=== PATIENT | female | born 1935 | race Caucasian/White ===

== ENCOUNTER 2021-03-14 20:46 | Emergency (ER) | payer MEDICARE, BC, MEDICAID, SELFPAY ==
--- NOTE | ~2021-03-14 | XR_ITS ---
XR chest 1V portable DATE: 03/14/2021 21:21 INDICATION: Altered mental state TECHNIQUE: Portable AP chest on 03/14/2021 2122 hours COMPARISON: 11/04/2018 two-view chest FINDINGS: Cardiomegaly. Aortic calcification and mild unfolding. No pulmonary infiltrate or consolidation, pleural effusion or pulmonary vascular congestion or pneumo thorax. Diffuse osteopenia. Mild dextro scoliosis of the thoracic spine. Surgical clips overlie either side of the diaphragmatic hiatus. IMPRESSION: Cardiomegaly and aortic atherosclerosis No active pulmonary disease Reviewed, dictated and finalized at location A.
--- NOTE | ~2021-03-14 | CT_ITS ---
EXAMINATION: CT abdomen pelvis w con DATE: 03/14/2021 22:29 INDICATION: Nausea. Abdominal tenderness. TECHNIQUE: Computed tomography (CT) of the abdomen and pelvis was performed with 100 cc Omnipaque 350 intravenous contrast. Automated exposure control and iterative reconstruction technique were employe d. Exam dose: 809.54 mGy-cm total exam DLP. COMPARISON: 10/16/2017 CT abdomen pelvis FINDINGS: Mild cardiomegaly. No pericardial or pleural effusion. There are mild interstitial fibrotic changes and/or atelectasis in the lower lung zones. Small sliding hiatal hernia. Fundoplication device and surgical clips in the region of the proximal stomach. No hepatic, splenic, pancreatic, adrenal space-occupying mass lesion. The gallbladder is present. No bile duct or pancreatic duct dilatation. Normal morphology of the adrenal glands. 8 mm right renal probable cyst. There is thickening and mild enhancement of the urothelium, which may indicate urinary tract infectio n. No ureteral calculus or hydroureteronephrosis. There is calcification of the abdominal aorta but no aneurysm. No intraperitoneal or retroperitoneal or pelvic mass lesion or adenopathy or ascites is evident. Left and right colonic diverticula; no CT evidence diverticulitis. No bowel obstruction. The appendix is not localized. T9 vertebral hemangioma Posterior L4-5 lumbar surgical spinal fusion. Left hip arthroplasty. IMPRESSION: Mild bilateral urothelial thickening and enhancement, suggesting possible urinary tract infection Mild urinary bladder wall thickening, which may be due to underdistention or infection 8 mm probable right renal cyst Postoperative changes of the stomach Small sliding hiatal hernia Cardiomegaly Left and right colon diverticulosis; no CT evidence of diverticulitis Reviewed, dictated and finalized at [facility]. Reviewed, dictated and finalized at location A. IMPRESSION: Mild bilateral urothelial thickening and enhancement, suggesting p ossible urinary tract infection Mild urinary bladder wall thickening, which may be due to underdistention or in fection 8 mm probable right renal cyst Postoperative changes of the stomach Small sliding hiatal hernia Cardiomegaly Left and right colon diverticulosis; no CT evidence of diverticulitis
[2021-03-14 20:59] VITALS: BP 132/64; PULSE 77; RESP 16; TEMP 37.7; O2SAT 92
--- NOTE | 2021-03-14 21:01 | ED.AMS ---
HPI - Altered Mental Status General Chief Complaint: Altered Mental Status Stated Complaint: AMS Time Seen by Provider: 03/14/21 21:01 History of Present Illness HPI narrative: History limited by dementia. [facility] Per EMS she may have been sent in for altered mental status, although per there report she is at her baseline. The pateint complains of nausea and abdominal pain, but does not seem to be a relieble historian and she is not able to give any details. Related Data Allergies Allergy/AdvReac Type Severity Reaction Status Date / Time acetaminophen Allergy Unknown Unknown Verified 03/14/21 23:37 bacitracin Allergy Unknown Unknown Verified 03/14/21 23:37 clonazepam Allergy Unknown Unknown Verified 03/14/21 23:37 codeine Allergy Unknown Unknown Verified 03/14/21 23:37 hydrocodone Allergy Unknown Unknown Verified 03/14/21 23:37 morphine Allergy Unknown Unknown Verified 03/14/21 23:37 neomycin Allergy Unknown Unknown Verified 03/14/21 23:37 polymyxin B Allergy Unknown Unknown Verified 03/14/21 23:37 propoxyphene Allergy Unknown Unknown Verified 03/14/21 23:37 raloxifene Allergy Unknown Unknown Verified 03/14/21 23:37 Review of Systems Review of Systems: ROS unobtainable: Yes unobtainable due to mental status PMFSH Past Medical History Medical History (Updated 03/15/21 @ 17:59 by Kulwinder Melton MD) Anxiety Chronic pain Family History Family History (Updated 07/24/14 @ 07:13 by DOCTOR UNKNOWN) Other Family history of arthritis Social History Social History (Updated 03/15/21 @ 17:59 by Kulwinder Melton MD) Smoking status: Never smoker Living arrangements[facility] Exam Const: General: no acute distress and alert Nutritional Appearance: well nourished Other: oriented x2 HENMT: Head: normal to inspection Mouth: Yes moist mucous membranes Neck: Neck: normal visual inspection Resp: Effort & Inspection: normal respiratory effort Auscultation: clear to auscultation bilaterally Cardio: Rate: regular rate Rhythm: regular rhythm GI: Inspection: non-distended GI Palp: Yes Soft to palpation, No Guarding due to palpation present (GI) and No Rebound tenderness present Auscultation: normal bowel sounds Other: inconsistent tenderness. Moans in pain with palpation, does not respond when equal pressure is applied with stethoscope Skin: General skin exam: normal color Neuro: General: moves all extremities Speech: normal speech Other: oriented x2 Course Vital Signs Vital signs: Vital Signs Temperature 37.7 C H 03/14/21 20:59 Pulse Rate 77 03/14/21 20:59 Respiratory Rate 16 03/14/21 20:59 Blood Pressure 132/64 03/14/21 20:59 Pulse Oximetry 92 03/14/21 20:59 Temperature 37.7 C H 03/14/21 20:59 Pulse Rate 99 03/15/21 03:00 Respiratory Rate 17 03/15/21 03:00 Blood Pressure 152/73 H 03/15/21 03:00 Pulse Oximetry 93 03/15/21 03:00 MDM - Altered Mental Status MDM Narrative Medical decision making narrative: UA indicative of infection. CT equivocal for pyelonephritis. She has only mild leukocytosis, she is afebrile, No vomiting, no CVA tenderness. Clinically pyelonephritis is unlikely. Dose of ceftriaxone given. Lab Data Result diagrams: 03/14/21 21:38 03/14/21 21:38 Labs: Lab Results 03/14/21 03/14/21 03/14/21 Range/Units 21:38 21:38 22:00 WBC 11.7 H (4.5-10.0) K/mm3 RBC 3.85 L (4.2-5.4) M/mm3 Hgb 12.1 (12.0-15.0) g/dL Hct 36.7 L (37.0-47.0) % MCV 95.3 (80-100) fl MCH 31.4 (26-34) pg MCHC 33.0 (32-36) g/dl RDW 12.9 (11.5-14.5) % Plt Count 154 (150-375) k/mm3 MPV 9.0 (7.4-10.4) fl Immature Gran % (Auto) 0.7 H (0-0.5) % Neut % (Auto) 81.1 H (45.5-73.1) % Lymph % (Auto) 10.8 L (18.3-44.2) % [place] % (Auto) 7.1 (2.6-8.5) % Eos % (Auto) 0.1 (0-4.4) % Baso % (Auto) 0.2 (0.2-1.2) % Lymph # (Auto) 1.26 (0.9-3.2
[2021-03-14 21:43] LABS: Basophils Percent Auto 0.2 % (0.2-1.2); Eosinophils Percent Auto 0.1 % (0-4.4); Hematocrit 36.7 % (37.0-47.0); Hemoglobin 12.1 g/dL (12.0-15.0); Immature Granulocyte Absolute 0.08 K/mm3 (0.00-0.031); Immature Granulocyte Percent A 0.7 % (0-0.5); Lymphocytes Absolute Auto 1.26 K/mm3 (0.9-3.2); Lymphocytes Percent Auto 10.8 % (18.3-44.2); Mean Corpuscular Hemoglobin 31.4 pg (26-34); Mean Corpuscular Volume 95.3 fl (80-100); Monocytes Absolute Auto 0.8 K/mm3 (0.1-0.6); Monocytes Percent Auto 7.1 % (2.6-8.5); Neutrophils Absolute Auto 9.5 K/mm3 (1.3-6.7); Neutrophils Percent Auto 81.1 % (45.5-73.1); Platelet Count Result 154 k/mm3 (150-375); Red Blood Count 3.85 M/mm3 (4.2-5.4); Red Cell Distribution Width 12.9 % (11.5-14.5); White Blood Count 11.7 K/mm3 (4.5-10.0)
[2021-03-14 21:54] LABS: Alanine Aminotransferase 12 U/L (4-35); Albumin Level 3.7 g/dL (3.5-5.1); Alkaline Phosphatase 85 U/L (38-126); Anion Gap 4 mmol/L (8-16); Aspartate Amino Transferase 24 U/L (14-36); Bilirubin,Total 1.2 mg/dL (0.2-1.3); Blood Urea Nitrogen 20 mg/dL (7-17); Calcium 9.3 mg/dL (8.4-10.2); Carbon Dioxide 27 mmol/L (22-30); Chloride 104 mmol/L (98-107); Estimated CRCL calculation 35 ml/min; Estimated Glomerular Filt Rate 53; Glucose 138 mg/dL (65-105); Potassium 4.2 mmol/L (3.4-5.0); Sodium 135 mmol/L (137-145)
[2021-03-14 22:00] VITALS: BP 139/70; PULSE 74; RESP 16; O2SAT 94
[2021-03-14 22:19] LABS: Add Urine Microscopic? YES; Appearance Urine Cloudy (Clear); Bacteria Urine Trace /hpf; Bilirubin Urine Negative (Negative); Color Urine Yellow (Yellow); Glucose Urine UA Negative (Negative); Ketones Urine Negative (Negative); Leukocyte Esterase Ur 3+ LEU/UL (Negative); Mucus Urine Rare /lpf; Nitrate Urine Positive (Negative); Protein Urine 1+ mg/dL (Negative); Specific Grav Ur 1.013 (1.001-1.035); Squamous Epithelial Cell Urine Rare /hpf (Few); Urobilinogen Urine Negative mg/dL (<2.0); WBC Urine 21-30 /hpf
[2021-03-14 22:21] LABS: Blood Urine Negative (Negative)
[2021-03-15] VITALS: BP 142/69; PULSE 81; RESP 16; O2SAT 94
[2021-03-15 02:00] VITALS: BP 138/71; PULSE 87; RESP 18; O2SAT 95
[2021-03-15 03:00] VITALS: BP 152/73; PULSE 99; RESP 17; O2SAT 93
== END 2021-03-15 03:20 ==
PROVIDERS: Emergency Provider Emergency Medicine; PCP Family Medicine
DX: N30.00 Acute cystitis without hematuria (principal); I51.7 Cardiomegaly; I70.0 Atherosclerosis of aorta; N28.1 Cyst of kidney, acquired; K57.90 Diverticulosis of intestine, part unspecified, without perforation or abscess without bleeding; K44.9 Diaphragmatic hernia without obstruction or gangrene; R93.41 Abnormal radiologic findings on diagnostic imaging of renal pelvis, ureter, or bladder
CPT/HCPCS: 36415; 71045; 74177; 80053; 81001; 85025; 87077; 87086; 87088; 87147; 87186; 96365; 99284; J0696; Q9967

== ENCOUNTER 2022-02-28 19:54 | Inpatient (IN) | payer MEDICARE, BC, MEDICAID, SELFPAY ==
--- NOTE | ~2022-02-28 | XR_ITS ---
EXAMINATION: XR chest 1V portable Exam Date/Time: 02/28/2022 20:05 CDT CLINICAL HISTORY: COUGH, TRANSIENT ALTERATION OF AWARENESS Comparison: 03/14/2021 RESULT: Lines, tubes, and devices: Surgical clips and suture material in the left upper quadrant. Lungs and pleura: Senescent changes, otherwise clear. Cardiomediastinal silhouette: Stable cardiomediastinal silhouette. Other: No acute osseous or upper abdominal finding. IMPRESSION: No acute cardiopulmonary process. Reviewed, dictated and finalized at location K.
--- NOTE | ~2022-02-28 | CT_ITS ---
EXAMINATION: CT abdomen pelvis w con DATE: 02/28/2022 21:38 INDICATION: Diffuse abdominal pain, fevers. TECHNIQUE: Computed tomography (CT) of the abdomen and pelvis was performed without intravenous contr ast. Automated exposure control and iterative reconstruction technique were employed. The dose-length product was 670.57 mGy-cm. COMPARISON: 03/14/2021. FINDINGS: Lower thorax: Senescent changes and minimal bibasilar atelectasis. Liver: No mass. Biliary/Gallbladder: No bile duct dilation. Normal gallbladder. Spleen: No mass. No splenomegaly. Granulomatous calcifications. Pancreas: No mass or duct dilation. Pancreatic atrophy. Adrenals:No mass. Kidneys: Likely right mid pole simple cyst. No stone, or hydronephrosis. GI tract: Fundoplication device and surgical clips at the proximal stomach. Gastric wall edema as can be seen with gastritis. No bowel dilation or wall thickening. Scattered diverticuli without evidence of diverticulitis. Uncomplicated appearing distal sigmoid anastomosis. Appendix not visualized, poss ibly surgically absent. Mesentery/Peritoneum: No ascites or mass. Retroperitoneum: No mass. Moderate atherosclerotic calcification in the abdominal arteries. Pelvis: Moderate bladder wall edema and surrounding inflammatory change, with urothelial enhancement. Uterus and ovaries not visualized and possibly surgically absent. Bones/Soft Tissues: Uncomplicated appearing L4-5 posterior fusion hardware and left total hip arthrop lasty hardware.No acute osseous finding. Additional Findings: None. IMPRESSION: Gastritis. Cystitis. No other acute abdominopelvic process detected. Reviewed, dictated and finalized at location K.
[2022-02-28 19:55] VITALS: BP 139/67; PULSE 94; RESP 16; TEMP 37.9; O2SAT 95
--- NOTE | 2022-02-28 19:59 | ECG_ITS ---
Measurements Intervals [place] Rate: 92 P: [place]: 0 QRS: -30 QRSD: 97 T: 26 QT: 321 QTc: 399 Interpretive Statements ATRIAL FIBRILLATION LEFTWARD AXIS T-WAVE ABNORMALITY, CONSIDER ISCHEMIA Electronically Signed On 03-01-2022 8:47:20 CDT by William Arroyo M.D.
--- NOTE | 2022-02-28 20:18 | ED.AMS ---
HPI - Altered Mental Status General Chief Complaint: Altered Mental Status Stated Complaint: ALTERED LOC, COUGH Time Seen by Provider: 02/28/22 19:59 Source: patient, family and EMS History of Present Illness HPI narrative: Patient was sent over from the nursing facility for weakness and altered mental status. Between, family nursing facility and EMS patient has not been eating patient is not been taking her medications. She seems more weak and slightly more confused than usual so she was referred to the ER for further evaluation. Patient reports her knees hurt but has no other complaints. Nurse for the report there has been some influenza in their facility. Related Data Home Medications Medication Instructions Recorded Confirmed aspirin 81 mg PO DAILY 02/28/22 02/28/22 donepezil 10 mg DAILY 02/28/22 02/28/22 loperamide 2 mg PO Q6H PRN 02/28/22 02/28/22 lorazepam 0.5 mg PO BID 02/28/22 02/28/22 ondansetron 8 mg PO TID PRN 02/28/22 03/01/22 pravastatin 20 mg PO HS 02/28/22 03/01/22 sumatriptan succinate 25 mg PO DAILY PRN 02/28/22 03/01/22 tamsulosin 0.4 mg PO HS 02/28/22 03/01/22 tramadol 50 mg PO TID 02/28/22 03/01/22 famotidine 20 mg PO DAILY 03/01/22 03/01/22 potassium chloride 10 meq PO DAILY 03/01/22 03/01/22 sertraline 50 mg PO DAILY 03/01/22 03/01/22 Allergies Allergy/AdvReac Type Severity Reaction Status Date / Time acetaminophen Allergy Unknown Unknown Verified 02/28/22 20:05 bacitracin Allergy Unknown Unknown Verified 02/28/22 20:05 clonazepam Allergy Unknown Unknown Verified 02/28/22 20:05 codeine Allergy Unknown Unknown Verified 02/28/22 20:05 hydrocodone Allergy Unknown Unknown Verified 02/28/22 20:05 morphine Allergy Unknown Unknown Verified 02/28/22 20:05 neomycin Allergy Unknown Unknown Verified 02/28/22 20:05 polymyxin B Allergy Unknown Unknown Verified 02/28/22 20:05 propoxyphene Allergy Unknown Unknown Verified 02/28/22 20:05 raloxifene Allergy Unknown Unknown Verified 02/28/22 20:05 Review of Systems Review of Systems: ROS unobtainable: Yes unobtainable due to mental status PMFSH Past Medical History Medical History Anxiety Chronic pain Family History Family History Other Family history of arthritis Social History Social History Smoking status: Never smoker Exam Narrative: GENERAL: Well-appearing, well-nourished, and in no acute distress. HEAD: Normocephalic, atraumatic. EYES: PERRLA and EOMI. ENT: Nares clear, no rhinorrhea or epistaxis. Mucous membranes moist. NECK: Supple. No masses. No JVD CHEST: Diffuse rhonchi no respiratory distress HEART: Regular rhythm no murmur heard. Normal peripheral pulses. ABDOMEN: Mild diffuse abdominal pain EXTREMITIES: Normal range of motion. No edema. SKIN: Warm, dry, no rash. NEURO: No focal deficits. Somnolent but arousable PSYCH: Normal mood and affect. Course Vital Signs Vital signs: Vital Signs Temperature 37.9 C H 02/28/22 19:55 Pulse Rate 94 02/28/22 19:55 Respiratory Rate 16 02/28/22 19:55 Blood Pressure 139/67 02/28/22 19:55 Pulse Oximetry 95 02/28/22 19:55 Temperature 36.9 C 03/01/22 01:23 Pulse Rate 97 03/01/22 01:23 Respiratory Rate 20 03/01/22 01:23 Blood Pressure 120/63 03/01/22 01:23 Pulse Oximetry 93 03/01/22 01:23 MDM - Altered Mental Status MDM Narrative Medical decision making narrative: Patient presented from long-term for increased confusion and weakness. Goals of care discussed with family early in the ER course. Family requested full work-up and admission if necessary. Labs and imaging obtained. Labs notable for infected urine vital signs notable for fever. Given vital sign abnormalities and lab abnormalities patient will be admitted for IV antibiotics and monitoring. Lab Data Result diagrams: 02/28/22
[2022-02-28 20:49] LABS: Basophils Percent Auto 0.2 % (0.2-1.2); Hematocrit 35.4 % (37.0-47.0); Hemoglobin 11.6 g/dL (12.0-15.0); Immature Granulocyte Absolute 0.04 K/mm3 (0.00-0.031); Immature Granulocyte Percent A 0.4 % (0-0.5); Lymphocytes Absolute Auto 2.81 K/mm3 (0.9-3.2); Lymphocytes Percent Auto 25.6 % (18.3-44.2); Mean Corpuscular HGB Conc 32.8 g/dl (32-36); Mean Corpuscular Hemoglobin 31.4 pg (26-34); Mean Corpuscular Volume 95.9 fl (80-100); Mean Platelet Volume 10.7 fl (7.4-10.4); Monocytes Absolute Auto 0.8 K/mm3 (0.1-0.6); Monocytes Percent Auto 7.1 % (2.6-8.5); Neutrophils Absolute Auto 7.3 K/mm3 (1.3-6.7); Neutrophils Percent Auto 66.7 % (45.5-73.1); Platelet Count Result 153 k/mm3 (150-375); Red Blood Count 3.69 M/mm3 (4.2-5.4); Red Cell Distribution Width 13.5 % (11.5-14.5)
[2022-02-28 21:08] LABS: Alanine Aminotransferase 15 U/L (4-35); Albumin Level 3.6 g/dL (3.5-5.1); Alkaline Phosphatase 85 U/L (38-126); Anion Gap 6 mmol/L (8-16); Aspartate Amino Transferase 32 U/L (14-36); Bilirubin,Total 0.6 mg/dL (0.2-1.3); Blood Urea Nitrogen 26 mg/dL (7-17); Calcium 8.8 mg/dL (8.4-10.2); Carbon Dioxide 27 mmol/L (22-30); Chloride 104 mmol/L (98-107); Estimated CRCL calculation 25 ml/min; Estimated Glomerular Filt Rate 36; Glucose 121 mg/dL (65-110); Potassium 4.2 mmol/L (3.4-5.0); Sodium 137 mmol/L (137-145)
[2022-02-28 21:09] LABS: Add Urine Microscopic? YES; Appearance Urine Cloudy (Clear); Bacteria Urine 3+ /hpf; Bilirubin Urine Negative (Negative); Blood Urine 2+ (Negative); Color Urine Amber (Yellow); Glucose Urine UA Negative (Negative); Ketones Urine Trace mg/dL (Negative); Leukocyte Esterase Ur 2+ LEU/UL (Negative); Mucus Urine Rare /lpf; Nitrate Urine Negative (Negative); Protein Urine 2+ mg/dL (Negative); RBC Urine 51-75 /hpf (0-2); Specific Grav Ur 1.015 (1.001-1.035); Squamous Epithelial Cell Urine Occasional /hpf (Few); Urobilinogen Urine Negative mg/dL (<2.0); WBC Clumps Urine Present /HPF; WBC Urine >75 /hpf
[2022-02-28] MEDS: SODIUM CHLORIDE 0.9% IV 500 ML 999 ML IV CONT (21:09)
[2022-02-28 21:22] LABS: INR 1.2
[2022-02-28 22:18] VITALS: BP 164/70; PULSE 101; RESP 14; O2SAT 96
[2022-02-28 22:45] LABS: Lactic Acid Reflex 1.4 mmol/L (0.7-2.1)
[2022-02-28 23:29] VITALS: BP 160/91; PULSE 92; RESP 15; TEMP 37.9; O2SAT 96
[2022-02-28] MEDS: IBUPROFEN IV 800 MG/200 ML 800 MG/200 ML BAG 400 MG IVPB (23:31)
[2022-03-01] VITALS (9 sets, daily range): BP systolic 101–191; BP diastolic 49–98; PULSE 75–97; RESP 18–20; TEMP 36.7–37.1; O2SAT 93–99; BMI 25.2
--- NOTE | 2022-03-01 00:30 | PC.NURSE ---
Attempted to give report to 3d MEd/surg. Receiving RN is busy and will call back when available.
--- NOTE | 2022-03-01 01:39 | ADMGEN ---
This patient, Brigette Moreira, was admitted to 3 [facility] Surg Room 322-01. Patient/family oriented to hospital policies and general routines including ID bracelet, bed and alarms, visiting hours, pain management, procedures, bathroom and other care routines, personal items, smoking policy, room service/diet, and visiting hours. Information on how to activate the Rapid Response Team has been discussed. Patient/Family are encouraged to report perceived risks to care and to ask questions if they do not understand what they are told or what they should do.
--- NOTE | 2022-03-01 04:49 | ADMGEN ---
This patient, Brigette Moreira, was admitted to 3 [facility] Surg Room [id number]. Patient/family oriented to hospital policies and general routines including ID bracelet, bed and alarms, visiting hours, pain management, procedures, bathroom and other care routines, personal items, smoking policy, room service/diet, and visiting hours. Information on how to activate the Rapid Response Team has been discussed. Patient/Family are encouraged to report perceived risks to care and to ask questions if they do not understand what they are told or what they should do.
--- NOTE | 2022-03-01 09:15 | PM.IMHP ---
H&P: HPI History of Present Illness Date/Time: 03/01/22914 Chief Complaint: Weakness and confusion Narrative: Patient is an 86 year old female with a past medical history of chronic pain and anxiety who presented to the ED from nursing facitily for evaluation of weakness, lack of appetite, and altered mental status. Patient was a poor historian so most of the HPI has been taken from the notes. It was noted the patient was brought in from EMS she had not been eating or taking her medications. Who has also reported the patient was much more confused than normal and was much less alert. When I went to the room the patient stated that she is just very cold and was having abdominal pain. She denies any chest pain, shortness of breath, nausea, vomiting. She kind of stop me after all those questions in as me to get her some blankets and then fell back asleep. Patient was very easily aroused however was not entertaining a review of systems at this time. Urine does look infectious or suspicious for infection. White blood cell count is elevated at 11.0 today. BUN and creatinine are elevated. Patient is being admitted to the hospital services as inpatient Review of Systems Review of Systems: ROS unobtainable: Yes unobtainable due to medical condition and unobtainable due to mental status PMFSH Past Medical History Medical History Anxiety Chronic pain Family History Family History Other Family history of arthritis Social History Social History Social History: Patient is a resident of [facility]. Patient designates her son to be her surrogate. 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 Smoking status: Never smoker Second hand tobacco smoke exposure: No Alcohol intake: former Substance use: never Spiritual care concerns: No Meds Home Medications and Allergies Home Medications Medication Instructions Recorded Confirmed Type aspirin 81 mg PO DAILY 02/28/22 02/28/22 History donepezil 10 mg DAILY 02/28/22 02/28/22 History loperamide 2 mg PO Q6H PRN 02/28/22 02/28/22 History lorazepam 0.5 mg PO BID 02/28/22 02/28/22 History ondansetron 8 mg PO TID PRN 02/28/22 03/01/22 History pravastatin 20 mg PO HS 02/28/22 03/01/22 History sumatriptan succinate 25 mg PO DAILY PRN 02/28/22 03/01/22 History tamsulosin 0.4 mg PO HS 02/28/22 03/01/22 History tramadol 50 mg PO TID 02/28/22 03/01/22 History famotidine 20 mg PO DAILY 03/01/22 03/01/22 History potassium chloride 10 meq PO DAILY 03/01/22 03/01/22 History sertraline 50 mg PO DAILY 03/01/22 03/01/22 History Allergies Allergy/AdvReac Type Severity Reaction Status Date / Time acetaminophen Allergy Unknown Unknown Verified 02/28/22 20:05 bacitracin Allergy Unknown Unknown Verified 02/28/22 20:05 clonazepam Allergy Unknown Unknown Verified 02/28/22 20:05 codeine Allergy Unknown Unknown Verified 02/28/22 20:05 hydrocodone Allergy Unknown Unknown Verified 02/28/22 20:05 morphine Allergy Unknown Unknown Verified 02/28/22 20:05 neomycin Allergy Unknown Unknown Verified 02/28/22 20:05 polymyxin B Allergy Unknown Unknown Verified 02/28/22 20:05 propoxyphene Allergy Unknown Unknown Verified 02/28/22 20:05 raloxifene Allergy Unknown Unknown Verified 02/28/22 20:05 Vital Signs Vital Signs - 24 hr 02/28/22 19:55 02/28/22 22:18 02/28/22 23:29 Temperature 100.3 F H 100.3 F H Pulse Rate 94 101 H 92 Respiratory Rate 16 14 15 Blood Pressure 139/67 164/70 H 160/91 H Pulse Oximetry 95 96 96 03/01/22 01:00 03/01/22 01:23 03/01/22 06:00 Temperature 98.4 F 98.4 F 98.1 F Pulse Rate 97 97 75 Respiratory Rate 20 20 20 Blood Pressure 120/63 120/63 101/50 L Pulse Oximetry 93 93 98 03/01/22 08:20 03/01/22 14:00 Temperature 98.5 F Pulse Rate 90 R
[2022-03-01] MEDS: SODIUM CHLORIDE 0.9% IV 1,000 ML 100 ML IV CONT ×2 (11:52→21:01)
[2022-03-01] MEDS: DOCUSATE SODIUM 100 MG CAPSULE PO (13:15)
[2022-03-01] MEDS: FAMOTIDINE 20 MG/2 ML VIAL IV PUSH (13:16)
[2022-03-01] MEDS: polyethylene glycoL 3350 17 GM POWD.PACK PO (13:38)
[2022-03-01] MEDS: BISACODYL 10 MG SUPPOSITORY RECTAL (14:25)
[2022-03-01] MEDS: SERTRALINE HCL 50 MG TABLET PO (15:53)
[2022-03-01] MEDS: DONEPEZIL HCL 10 MG TABLET PO (15:53)
[2022-03-01] MEDS: POTASSIUM CHLORIDE 10 MEQ TABLET.ER PO (15:53)
[2022-03-01] MEDS: FAMOTIDINE 20 MG TABLET PO (15:53)
[2022-03-01] MEDS: ENOXAPARIN 40 MG/0.4 ML SYRINGE SUB-Q (15:54)
[2022-03-01] MEDS: ASPIRIN 81 MG CHEWABLE TABLET PO (15:54)
[2022-03-01] MEDS: traMADol HCL (*CRX) 50 MG TABLET PO (15:59)
[2022-03-01] MEDS: LORazepam (*CRX) 0.5 MG TABLET PO (15:59)
[2022-03-01] MEDS: PRAVASTATIN SODIUM 20 MG TABLET PO (21:02)
[2022-03-01] MEDS: TAMSULOSIN HCL 0.4 MG CAPSULE PO (21:02)
[2022-03-01] MEDS: SUMAtriptan SUCCINATE 25 MG TABLET PO (21:14)
--- NOTE | 2022-03-01 21:26 | PC.NURSE ---
BP 191/98 and repeat bp 196/102. Pt c/o headache , imitrex given. Place call to Lavinia Walter NP, states will look at pt's chart.
[2022-03-02 06:00] VITALS: BP 128/70; PULSE 92; RESP 18; TEMP 37.7; O2SAT 93
[2022-03-02 06:24] LABS: Basophils Percent Auto 0.3 % (0.2-1.2); Eosinophils Absolute Auto 0.1 K/mm3 (0-0.3); Eosinophils Percent Auto 1.1 % (0-4.4); Hematocrit 34.1 % (37.0-47.0); Hemoglobin 10.7 g/dL (12.0-15.0); Immature Granulocyte Absolute 0.04 K/mm3 (0.00-0.031); Immature Granulocyte Percent A 0.5 % (0-0.5); Lymphocytes Absolute Auto 2.52 K/mm3 (0.9-3.2); Lymphocytes Percent Auto 31.8 % (18.3-44.2); Mean Corpuscular HGB Conc 31.4 g/dl (32-36); Mean Corpuscular Hemoglobin 31.3 pg (26-34); Mean Corpuscular Volume 99.7 fl (80-100); Mean Platelet Volume 10.7 fl (7.4-10.4); Monocytes Absolute Auto 0.6 K/mm3 (0.1-0.6); Monocytes Percent Auto 7.7 % (2.6-8.5); Neutrophils Absolute Auto 4.7 K/mm3 (1.3-6.7); Neutrophils Percent Auto 58.6 % (45.5-73.1); Platelet Count Result 176 k/mm3 (150-375); Red Blood Count 3.42 M/mm3 (4.2-5.4); Red Cell Distribution Width 13.8 % (11.5-14.5); White Blood Count 7.9 K/mm3 (4.5-10.0)
[2022-03-02 06:35] LABS: Potassium 4.1 mmol/L (3.4-5.0)
[2022-03-02 06:42] LABS: Alanine Aminotransferase 11 U/L (4-35); Albumin Level 3.1 g/dL (3.5-5.1); Alkaline Phosphatase 79 U/L (38-126); Anion Gap 6 mmol/L (8-16); Aspartate Amino Transferase 26 U/L (14-36); Bilirubin,Total 0.5 mg/dL (0.2-1.3); Blood Urea Nitrogen 21 mg/dL (7-17); Calcium 8.4 mg/dL (8.4-10.2); Carbon Dioxide 22 mmol/L (22-30); Chloride 113 mmol/L (98-107); Estimated CRCL calculation 29 ml/min; Estimated Glomerular Filt Rate 43; Glucose 80 mg/dL (65-110); Magnesium 2.2 mg/dL (1.6-2.3); Sodium 141 mmol/L (137-145)
[2022-03-02] MEDS: SODIUM CHLORIDE 0.9% IV 1,000 ML 100 ML IV CONT (07:34)
[2022-03-02] MEDS: SERTRALINE HCL 50 MG TABLET PO (08:10)
[2022-03-02] MEDS: ENOXAPARIN 40 MG/0.4 ML SYRINGE SUB-Q (08:10)
[2022-03-02] MEDS: POTASSIUM CHLORIDE 10 MEQ TABLET.ER PO (08:11)
[2022-03-02] MEDS: DONEPEZIL HCL 10 MG TABLET PO (08:11)
[2022-03-02] MEDS: FAMOTIDINE 20 MG TABLET PO (08:11)
[2022-03-02] MEDS: ASPIRIN 81 MG CHEWABLE TABLET PO (08:11)
[2022-03-02] MEDS: LORazepam (*CRX) 0.5 MG TABLET PO ×2 (08:15→16:19)
[2022-03-02] MEDS: traMADol HCL (*CRX) 50 MG TABLET PO ×3 (08:15→16:19)
[2022-03-02 10:01] LABS: Lactate Dehydrogenase 346 U/L (313-618)
[2022-03-02 10:09] LABS: Transferrin 122 mg/dL (206-381)
--- NOTE | 2022-03-02 10:15 | PM.IMPN ---
Progress Note: A&P Assessment and Plan (1) Anemia: Code(s): D64.9 - Anemia, unspecified Status: Acute Assessment and Plan: H/H trending down looks to be an iron deficiency anemia looks to be a chronic however it could be acute unknown at this time Current H/H 10.7/34.1 Continue to trend labs Labs in that am Anemia labs Iron 31, TIBC 182,% saturation 17, transferrin 122, ferritin 162, vitamin B12 greater than a 1000 folate greater than 20 iron supplement added Supplement as indicated (2) MIRACLE (acute kidney injury): Code(s): N17.9 - Acute kidney failure, unspecified Status: Acute Assessment and Plan: BUN creatinine 21/1.20. Baseline BUN creatinine seems to be around 20/1.1 Prior related to infection or retention Continue patient's tamsulosin Post residual void p.r.n. IV antibiotics on board IV fluids under mils an hour normal saline Trend labs (3) Sepsis: Code(s): A41.9 - Sepsis, unspecified organism Status: Acute Assessment and Plan: Meets sepsis criteria with leukocytosis of 11.7, lactic acid 1.4, fever of 100.3, heart rate of 101, respirations 16 Lactic acid is 1.4 Source of infection seems to favor UTI Blood cultures NGTD Urine culture Ecoli Q sofa score 2 Notable MIRACLE IV ceftriaxone on board Trend labs Abdominal CT shows gastritis, cystitis (4) Acute metabolic encephalopathy: Code(s): G93.41 - Metabolic encephalopathy Status: Acute Assessment and Plan: Seems to be resolving Notable altered mental status Seems to be getting better Probably secondary to infection Continue IV antibiotics (5) Acute UTI: Code(s): N39.0 - Urinary tract infection, site not specified Status: Acute Assessment and Plan: UA showed cloudy umu urine, 2+ protein, 2+ blood, 2+ leukocyte esterase, greater than 75 wbc's, white blood cell clumps present, urine bacteria 3+ Urine cultures Grew ecoli Continue ceftriaxone Await cultures results Tailor antibiotics to culture Trend labs Mild leukocytosis Time Spent With Patient Time with patient: Greater than 35 minutes Subjective Date/time seen: 03/02/22 10:15 Interval history: Date/Time: 03/01/22 5815 Narrative: Patient is an 86 year old female with a past medical history of chronic pain and anxiety who presented to the ED from nursing facitily for evaluation of weakness, lack of appetite, and altered mental status. Patient was a poor historian so most of the HPI has been taken from the notes. It was noted the patient was brought in from EMS she had not been eating or taking her medications. Who has also reported the patient was much more confused than normal and was much less alert. When I went to the room the patient stated that she is just very cold and was having abdominal pain. She denies any chest pain, shortness of breath, nausea, vomiting. She kind of stop me after all those questions in as me to get her some blankets and then fell back asleep. Patient was very easily aroused however was not entertaining a review of systems at this time. Urine does look infectious or suspicious for infection. White blood cell count is elevated at 11.0 today. BUN and creatinine are elevated. Date/Time seen: 03/02/22 1015 patient seems to be doing better today as she is very feisty. She told me that she did know where her wheelchair was in the lost her teeth. I let her know that she was in the hospital and that she had a UTI. She said that she knew she had a UTI and they would listen [facility] her [facility] the [facility]. She does state that she does transfer on her own to her wheelchair. PT OT have been working with her and she was able to get to the chair. She denies any chest pain, shortness of breath, nausea, abdominal pain, weakness or fatigue. Patient was able to feed and drink on her own. Review of Systems Review of Sys
--- NOTE | 2022-03-02 10:15 | P.PNIM_ITS ---
Progress Note: A&P Assessment and Plan (1) Anemia: Code(s): D64.9 - Anemia, unspecified Status: Acute Assessment and Plan: * H/H trending down * looks to be an iron deficiency anemia looks to be a chronic however it could be acute unknown at this time * Current H/H 10.7/34.1 * Continue to trend labs * Labs in that am * Anemia labs Iron 31, TIBC 182,% saturation 17, transferrin 122, ferritin 162, vitamin B12 greater than a 1000 folate greater than 20 * iron supplement added * Supplement as indicated (2) MIRACLE (acute kidney injury): Code(s): N17.9 - Acute kidney failure, unspecified Status: Acute Assessment and Plan: * BUN creatinine 21/1.20. * Baseline BUN creatinine seems to be around 20/1.1 * Prior related to infection or retention * Continue patient's tamsulosin * Post residual void p.r.n. * IV antibiotics on board * IV fluids under mils an hour normal saline * Trend labs (3) Sepsis: Code(s): A41.9 - Sepsis, unspecified organism Status: Acute Assessment and Plan: * Meets sepsis criteria with leukocytosis of 11.7, lactic acid 1.4, fever of 100.3, heart rate of 101, respirations 16 * Lactic acid is 1.4 * Source of infection seems to favor UTI * Blood cultures NGTD * Urine culture Ecoli * Q sofa score 2 * Notable MIRACLE * IV ceftriaxone on board * Trend labs * Abdominal CT shows gastritis, cystitis (4) Acute metabolic encephalopathy: Code(s): G93.41 - Metabolic encephalopathy Status: Acute Assessment and Plan: * Seems to be resolving * Notable altered mental status * Seems to be getting better * Probably secondary to infection * Continue IV antibiotics (5) Acute UTI: Code(s): N39.0 - Urinary tract infection, site not specified Status: Acute Assessment and Plan: * UA showed cloudy umu urine, 2+ protein, 2+ blood, 2+ leukocyte esterase, greater than 75 wbc's, white blood cell clumps present, urine bacteria 3+ * Urine cultures Grew ecoli * Continue ceftriaxone * Await cultures results * Tailor antibiotics to culture * Trend labs * Mild leukocytosis Time Spent With Patient Time with patient: Greater than 35 minutes Subjective Date/time seen: 03/02/22 10:15 Interval history: Date/Time: 03/01/22 0915 Narrative: Patient is an 86 year old female with a past medical history of chronic pain and anxiety who presented to the ED from nursing facitily for evaluation of weakness, lack of appetite, and altered mental status. Patient was a poor historian so most of the HPI has been taken from the notes. It was noted the patient was brought in from EMS she had not been eating or taking her medications. Who has also reported the patient was much more confused than normal and was much less alert. When I went to the room the patient stated that she is just very cold and was having abdominal pain. She denies any chest pain, shortness of breath, nausea, vomiting. She kind of stop me after all those questions in as me to get her some blankets and then fell back asleep. Patient was very easily aroused however was not entertaining a review of systems at this time. Urine does look infectious or suspicious for infection. White blood cell count is elevated at 11.0 today. BUN and creatinine are elevated. Date/Time seen: 03/02/22 1015 patient seems to be doing better today as she is very feisty. She told me that she did know where her wheelchair wa
[2022-03-02 10:32] LABS: Iron 31 ug/dL (37-170)
[2022-03-02 10:36] LABS: Percent Iron Saturation 17 % (20-50)
--- NOTE | 2022-03-02 10:47 | PCPTNOTE ---
Patient refused attempts for initial evaluation this date due to being too tired to get out of bed. Will attempt at a later time.
[2022-03-02 11:20] LABS: Folic Acid > 20.0 ng/mL (2.76->20); Vitamin B12 > 1000.0 pg/mL (239-931)
--- NOTE | 2022-03-02 13:49 | PC.NURSE ---
Pt states she is nauseous requesting maalox, called [facility], awaiting call back.
[2022-03-02] MEDS: polyethylene glycoL 3350 17 GM POWD.PACK PO ×2 (13:58→14:20)
[2022-03-02] MEDS: MAGNESIUM HYDROXIDE SUSP 30 ML UDC PO (13:59)
[2022-03-02 14:00] VITALS: BP 138/72; PULSE 84; RESP 17; TEMP 37.2; O2SAT 95
--- NOTE | 2022-03-02 15:05 | PC.NURSE ---
report sensitivity to HOT BRAIDER Mike, IV abt changed to ertapenem, awaiting medication arrival from pharmacy.
[2022-03-02 16:36] VITALS: O2SAT 97
[2022-03-02] MEDS: ERTAPENEM SODIUM 0.5 GM in SODIUM CHLORIDE 0.9% IV 50 ML IVPB (17:47)
[2022-03-02 20:05] VITALS: PULSE 94; RESP 18; O2SAT 96
[2022-03-02] MEDS: TAMSULOSIN HCL 0.4 MG CAPSULE PO (20:44)
[2022-03-02] MEDS: PRAVASTATIN SODIUM 20 MG TABLET PO (20:45)
[2022-03-02 21:20] VITALS: BP 141/84; PULSE 94; RESP 18; TEMP 36.6; O2SAT 96
[2022-03-03 05:35] VITALS: BP 131/72; PULSE 90; RESP 18; TEMP 36.7; O2SAT 96
[2022-03-03 06:02] LABS: Basophils Percent Auto 0.2 % (0.2-1.2); Eosinophils Absolute Auto 0.2 K/mm3 (0-0.3); Eosinophils Percent Auto 1.9 % (0-4.4); Hematocrit 37.3 % (37.0-47.0); Hemoglobin 11.8 g/dL (12.0-15.0); Immature Granulocyte Absolute 0.04 K/mm3 (0.00-0.031); Immature Granulocyte Percent A 0.5 % (0-0.5); Lymphocytes Absolute Auto 2.48 K/mm3 (0.9-3.2); Lymphocytes Percent Auto 29.6 % (18.3-44.2); Mean Corpuscular HGB Conc 31.6 g/dl (32-36); Mean Corpuscular Hemoglobin 31.6 pg (26-34); Mean Corpuscular Volume 99.7 fl (80-100); Mean Platelet Volume 9.8 fl (7.4-10.4); Monocytes Absolute Auto 0.7 K/mm3 (0.1-0.6); Monocytes Percent Auto 8.7 % (2.6-8.5); Neutrophils Percent Auto 59.1 % (45.5-73.1); Platelet Count Result 185 k/mm3 (150-375); Red Blood Count 3.74 M/mm3 (4.2-5.4); Red Cell Distribution Width 13.4 % (11.5-14.5); White Blood Count 8.4 K/mm3 (4.5-10.0)
[2022-03-03 06:20] LABS: Alanine Aminotransferase 12 U/L (4-35); Albumin Level 3.3 g/dL (3.5-5.1); Alkaline Phosphatase 76 U/L (38-126); Anion Gap 5 mmol/L (8-16); Aspartate Amino Transferase 28 U/L (14-36); Bilirubin,Total 0.7 mg/dL (0.2-1.3); Blood Urea Nitrogen 19 mg/dL (7-17); Calcium 8.6 mg/dL (8.4-10.2); Carbon Dioxide 23 mmol/L (22-30); Chloride 111 mmol/L (98-107); Estimated CRCL calculation 35 ml/min; Estimated Glomerular Filt Rate 53; Glucose 89 mg/dL (65-110); Magnesium 2.2 mg/dL (1.6-2.3); Potassium 3.8 mmol/L (3.4-5.0); Sodium 139 mmol/L (137-145)
[2022-03-03 08:00] VITALS: BP 148/82; PULSE 108; RESP 18; TEMP 36.9; O2SAT 99
[2022-03-03] MEDS: ASPIRIN 81 MG CHEWABLE TABLET PO (09:57)
[2022-03-03] MEDS: POTASSIUM CHLORIDE 10 MEQ TABLET.ER PO (09:57)
[2022-03-03] MEDS: FAMOTIDINE 20 MG TABLET PO (09:57)
[2022-03-03] MEDS: polyethylene glycoL 3350 17 GM POWD.PACK PO (09:57)
[2022-03-03] MEDS: traMADol HCL (*CRX) 50 MG TABLET PO ×3 (09:57→17:01)
[2022-03-03] MEDS: FERROUS SULFATE 324 MG TABLET PO ×2 (09:57→17:01)
[2022-03-03] MEDS: SERTRALINE HCL 50 MG TABLET PO (09:57)
[2022-03-03] MEDS: DONEPEZIL HCL 10 MG TABLET PO (09:57)
[2022-03-03] MEDS: LORazepam (*CRX) 0.5 MG TABLET PO ×2 (09:58→17:01)
[2022-03-03] MEDS: ENOXAPARIN 40 MG/0.4 ML SYRINGE SUB-Q (09:58)
[2022-03-03] MEDS: MAGNESIUM HYDROXIDE SUSP 30 ML UDC PO (10:52)
--- NOTE | 2022-03-03 11:15 | P.DS_ITS ---
DS: Admitting Diagnosis Discharge Date 03/03/22 1115 Admitting Diagnosis Complicated UTI DS: Discharge Diagnosis Discharge Diagnosis (1) Anemia: Code(s): D64.9 - Anemia, unspecified Status: Acute Assessment and Plan: * H/H trending down * looks to be an iron deficiency anemia looks to be a chronic however it could be acute unknown at this time * Current H/H 10.7/34.1 * Continue to trend labs * Labs in that am * Anemia labs Iron 31, TIBC 182,% saturation 17, transferrin 122, ferritin 1 62, vitamin B12 greater than a 1000 folate greater than 20 * iron supplement added * Supplement as indicated (2) MIRACLE (acute kidney injury): Code(s): N17.9 - Acute kidney failure, unspecified Status: Acute Assessment and Plan: * BUN creatinine 21/1.20. * Baseline BUN creatinine seems to be around 20/1.1 * Prior related to infection or retention * Continue patient's tamsulosin * Post residual void p.r.n. * IV antibiotics on board * IV fluids under mils an hour normal saline * Trend labs (3) Sepsis: Code(s): A41.9 - Sepsis, unspecified organism Status: Acute Assessment and Plan: * Meets sepsis criteria with leukocytosis of 11.7, lactic acid 1.4, fever of 100.3, heart rate of 101, respirations 16 * Lactic acid is 1.4 * Source of infection seems to favor UTI * Blood cultures NGTD * Urine culture Ecoli * Q sofa score 2 * Notable MIRACLE * IV ceftriaxone on board * Trend labs * Abdominal CT shows gastritis, cystitis (4) Acute metabolic encephalopathy: Code(s): G93.41 - Metabolic encephalopathy Status: Acute Assessment and Plan: * Seems to be resolving * Notable altered mental status * Seems to be getting better * Probably secondary to infection * Continue IV antibiotics (5) Acute UTI: Code(s): N39.0 - Urinary tract infection, site not specified Status: Acute Assessment and Plan: * UA showed cloudy umu urine, 2+ protein, 2+ blood, 2+ leukocyte esterase, greater than 75 wbc's, white blood cell clumps present, urine bacteria 3+ * Urine cultures Grew ecoli * Continue ceftriaxone * Await cultures results * Tailor antibiotics to culture * Trend labs * Mild leukocytosis DS: Summary Hospital Course Hospital Course: Patient is an 86 year old female with a past medical history of chronic pain and anxiety who presented to the ED from nursing facility for evaluation of weakness, lack of appetite, and altered mental status. upon arrival patient was noted to be confused and had an elevated BUN and creatinine of 26/1.40. Patient was started on IV fluids and blood cultures and urine cultures were taken at that time. Urine cultures did grow E coli that was highly resistant to most antibiotics. Patient was started on IV ceftriaxone however had to be changed to ertapenem and she will need to be discharged On ertapenem due to resistance. Patient was noted to have a lower H&H and anemia labs have been drawn. Patient has been started on iron supplementation and her H&H has remained stable since. She is more aware and alert to her surroundings after reorientation. PT and OT did see the patient and she was able to get to the chair. White blood cell count has returned back to normal at 8.4 today. BUN and creatinine are also normal. Patient stable for discharge according to lab work and vital signs. Patient will be discharging with a midline and 7 days of IV antibiotics.
--- NOTE | 2022-03-03 11:15 | PM.DS ---
DS: Admitting Diagnosis Discharge Date 03/03/22 1115 Admitting Diagnosis Complicated UTI DS: Discharge Diagnosis Discharge Diagnosis (1) Anemia: Code(s): D64.9 - Anemia, unspecified Status: Acute Assessment and Plan: H/H trending down looks to be an iron deficiency anemia looks to be a chronic however it could be acute unknown at this time Current H/H 10.7/34.1 Continue to trend labs Labs in that am Anemia labs Iron 31, TIBC 182,% saturation 17, transferrin 122, ferritin 162, vitamin B12 greater than a 1000 folate greater than 20 iron supplement added Supplement as indicated (2) MIRACLE (acute kidney injury): Code(s): N17.9 - Acute kidney failure, unspecified Status: Acute Assessment and Plan: BUN creatinine 21/1.20. Baseline BUN creatinine seems to be around 20/1.1 Prior related to infection or retention Continue patient's tamsulosin Post residual void p.r.n. IV antibiotics on board IV fluids under mils an hour normal saline Trend labs (3) Sepsis: Code(s): A41.9 - Sepsis, unspecified organism Status: Acute Assessment and Plan: Meets sepsis criteria with leukocytosis of 11.7, lactic acid 1.4, fever of 100.3, heart rate of 101, respirations 16 Lactic acid is 1.4 Source of infection seems to favor UTI Blood cultures NGTD Urine culture Ecoli Q sofa score 2 Notable MIRACLE IV ceftriaxone on board Trend labs Abdominal CT shows gastritis, cystitis (4) Acute metabolic encephalopathy: Code(s): G93.41 - Metabolic encephalopathy Status: Acute Assessment and Plan: Seems to be resolving Notable altered mental status Seems to be getting better Probably secondary to infection Continue IV antibiotics (5) Acute UTI: Code(s): N39.0 - Urinary tract infection, site not specified Status: Acute Assessment and Plan: UA showed cloudy umu urine, 2+ protein, 2+ blood, 2+ leukocyte esterase, greater than 75 wbc's, white blood cell clumps present, urine bacteria 3+ Urine cultures Grew ecoli Continue ceftriaxone Await cultures results Tailor antibiotics to culture Trend labs Mild leukocytosis DS: Summary Hospital Course Hospital Course: Patient is an 86 year old female with a past medical history of chronic pain and anxiety who presented to the ED from nursing facility for evaluation of weakness, lack of appetite, and altered mental status. upon arrival patient was noted to be confused and had an elevated BUN and creatinine of 26/1.40. Patient was started on IV fluids and blood cultures and urine cultures were taken at that time. Urine cultures did grow E coli that was highly resistant to most antibiotics. Patient was started on IV ceftriaxone however had to be changed to ertapenem and she will need to be discharged On ertapenem due to resistance. Patient was noted to have a lower H&H and anemia labs have been drawn. Patient has been started on iron supplementation and her H&H has remained stable since. She is more aware and alert to her surroundings after reorientation. PT and OT did see the patient and she was able to get to the chair. White blood cell count has returned back to normal at 8.4 today. BUN and creatinine are also normal. Patient stable for discharge according to lab work and vital signs. Patient will be discharging with a midline and 7 days of IV antibiotics. Status at Discharge Functional status at discharge: wheelchair bound Overall status at discharge: patient is progressing back to baseline Time Spent with Patient Time attestation: Total time spent providing and/or coordinating discharge services: 38 minutes Time spent: Greater than 30 minutes Specific discharge activities: Diagnostic testing, chart review, developing a treatment plan, education, care coordination documentation, physical exam, result review Exam Const: General: harpreet
[2022-03-03 12:22] VITALS: O2SAT 97
[2022-03-03 14:00] VITALS: BP 129/87; PULSE 77; RESP 18; TEMP 36.2; O2SAT 98
[2022-03-03] MEDS: LIDOCAINE HCL 1% LOCAL INJ 2 ML AMPUL 5 ML INFILTRATE (14:35)
[2022-03-03] MEDS: ERTAPENEM SODIUM 0.5 GM in SODIUM CHLORIDE 0.9% IV 50 ML IVPB (15:09)
[2022-03-03 15:33] LABS: EDCOVIDSCREEN Negative (Negative)
[2022-03-03] MEDS: SALINE LOCK FLUSH 10 ML IV PUSH (17:03)
--- NOTE | 2022-03-03 18:57 | PC.NURSE ---
Clothes left behind. [facility] notified. Returned call. Son stated to throw clothes away.
== END 2022-03-03 17:58 | DRG 871 ==
LOC: ANHED 22:43 → ANH3MEDSUR 03-01 10:53
PROVIDERS: Admitting Provider Internal Medicine; Emergency Provider Emergency Medicine; PCP Family Medicine; Visit Provider Nurse Practitioner
DX: A41.9 Sepsis, unspecified organism (principal); G93.41 Metabolic encephalopathy; N39.0 Urinary tract infection, site not specified; Z16.12 Extended spectrum beta lactamase (ESBL) resistance; N17.9 Acute kidney failure, unspecified; B96.20 Unspecified Escherichia coli [E. coli] as the cause of diseases classified elsewhere; D50.9 Iron deficiency anemia, unspecified; F41.9 Anxiety disorder, unspecified; G89.29 Other chronic pain; Z20.822 Contact with and (suspected) exposure to COVID-19
CPT/HCPCS: 36415; 36569; 51701; 71045; 74177; 80053; 81001; 82607; 82728; 82746; 83540; 83550; 83605; 83615; 83735; 84466; 85025; 85610; 85730; 87040; 87077; 87086; 87088; 87186; 87426; 87804; 93005; 96361; 96374; 97161; 97165; 99285; A9270; C1751; C9803; J0696; J1335; J1650; J1741; J7030; J7040; Q9967

== ENCOUNTER 2022-04-24 11:27 | Inpatient (IN) | payer MEDICARE, BC, MEDICAID, SELFPAY ==
[2022-04-24] VITALS (7 sets, daily range): BP systolic 136–164; BP diastolic 70–90; PULSE 60–112; RESP 13–20; TEMP 36.1–36.7; O2SAT 95–100; BMI 27.5
--- NOTE | ~2022-04-24 | CT_ITS ---
EXAMINATION: CT brain wo con DATE: 04/24/2022 12:30 INDICATION: Transient alteration of awareness. History of dementia. TECHNIQUE: Computed tomography (CT) of the head was performed without intravenous contrast. The mA wa s adjusted according to patient size. Iterative reconstruction technique was employed. Exam dose: 52 9.67 mGy-cm total exam DLP. COMPARISON: 10/13/2017 CT brain FINDINGS: There is moderate cerebral and cerebellar volume loss. No intracranial mass lesion or hemorrhage or cerebrovascular accident is evident. There is prominent bilateral carotid siphon internal carotid artery and left vertebral artery calcifi cation. There is nonspecific diminished attenuation of the cerebral white matter, likely due to chron ic small vessel ischemic changes. No subdural or epidural hematoma is detected. 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 The mastoid air cells and included pa ranasal sinuses are unremarkable. No fracture or bone destruction of the cranial vault. IMPRESSION: Cerebral atherosclerosis and chronic small vessel ischemic changes of the cerebral white matter No acute intracranial finding Reviewed, dictated and finalized at [facility] Reviewed, dictated and finalized at [facility].
--- NOTE | 2022-04-24 11:42 | ECG_ITS ---
Measurements Intervals [place] Rate: 81 P: VA: 0 QRS: -32 QRSD: 96 T: 29 QT: 361 QTc: 421 Interpretive Statements ATRIAL FIBRILLATION LEFT AXIS DEVIATION DELAYED PRECORDIAL R/S TRANSITION BORDERLINE ST-T WAVE ABNORMALITY- DIFFUSE LEADS BASELINE ARTIFACT- I, II, III, AVR, AVL, V1-V3 ABNORMAL ECG Electronically Signed On 04-24-2022 15:17:18 CDT by Sunday Garcia D.O.
[2022-04-24 12:05] LABS: Basophils Percent Auto 0.3 % (0.2-1.2); Eosinophils Absolute Auto 0.1 K/mm3 (0-0.3); Eosinophils Percent Auto 0.8 % (0-4.4); Hematocrit 39.4 % (37.0-47.0); Hemoglobin 12.7 g/dL (12.0-15.0); Immature Granulocyte Absolute 0.02 K/mm3 (0.00-0.031); Immature Granulocyte Percent A 0.3 % (0-0.5); Lymphocytes Absolute Auto 2.06 K/mm3 (0.9-3.2); Lymphocytes Percent Auto 26.6 % (18.3-44.2); Mean Corpuscular HGB Conc 32.2 g/dl (32-36); Mean Corpuscular Hemoglobin 32.2 pg (26-34); Mean Corpuscular Volume 99.7 fl (80-100); Mean Platelet Volume 9.7 fl (7.4-10.4); Monocytes Absolute Auto 0.4 K/mm3 (0.1-0.6); Monocytes Percent Auto 5.3 % (2.6-8.5); Neutrophils Absolute Auto 5.2 K/mm3 (1.3-6.7); Neutrophils Percent Auto 66.7 % (45.5-73.1); Platelet Count Result 194 k/mm3 (150-375); Red Blood Count 3.95 M/mm3 (4.2-5.4); Red Cell Distribution Width 15.2 % (11.5-14.5); White Blood Count 7.8 K/mm3 (4.5-10.0)
--- NOTE | 2022-04-24 12:07 | ED.AMS ---
HPI - Altered Mental Status General Chief Complaint: Altered Mental Status Stated Complaint: altered LOC Time Seen by Provider: 04/24/22 11:42 History of Present Illness HPI narrative: 86-year-old female presenting after she was found to be altered this morning at her halfway, per report she had been having nausea and vomiting and diarrhea yesterday, she is usually verbal at baseline but has been much less talkative today. History cannot be obtained from patient herself given her current medical condition. Related Data Home Medications Medication Instructions Recorded Confirmed aspirin 81 mg chewable tablet 81 mg PO DAILY 02/28/22 02/28/22 donepezil 10 mg tablet 10 mg DAILY 02/28/22 02/28/22 loperamide 2 mg capsule 2 mg PO Q6H PRN Diarrhea 02/28/22 02/28/22 lorazepam 0.5 mg tablet 0.5 mg PO BID 02/28/22 02/28/22 ondansetron 8 mg disintegrating 8 mg PO TID PRN Nausea 02/28/22 03/01/22 tablet pravastatin 20 mg tablet 20 mg PO HS 02/28/22 03/01/22 sumatriptan succinate 25 mg tablet 25 mg PO DAILY PRN Headache 02/28/22 03/01/22 tamsulosin 0.4 mg capsule 0.4 mg PO HS 02/28/22 03/01/22 famotidine 20 mg tablet 20 mg PO DAILY 03/01/22 03/01/22 potassium chloride 10 mEq 10 meq PO DAILY 03/01/22 03/01/22 capsule,extended release sertraline 50 mg tablet 50 mg PO DAILY 03/01/22 03/01/22 Allergies Allergy/AdvReac Type Severity Reaction Status Date / Time acetaminophen Allergy Unknown Unknown Verified 02/28/22 20:05 bacitracin Allergy Unknown Unknown Verified 02/28/22 20:05 clonazepam Allergy Unknown Unknown Verified 02/28/22 20:05 codeine Allergy Unknown Unknown Verified 02/28/22 20:05 hydrocodone Allergy Unknown Unknown Verified 02/28/22 20:05 morphine Allergy Unknown Unknown Verified 02/28/22 20:05 neomycin Allergy Unknown Unknown Verified 02/28/22 20:05 polymyxin B Allergy Unknown Unknown Verified 02/28/22 20:05 propoxyphene Allergy Unknown Unknown Verified 02/28/22 20:05 raloxifene Allergy Unknown Unknown Verified 02/28/22 20:05 Review of Systems Review of Systems: ROS unobtainable: Yes unobtainable due to medical condition and unobtainable due to mental status PMFSH Past Medical History Medical History Anxiety Chronic pain Family History Family History Other Family history of arthritis Social History Social History Social History: Patient is a resident of [facility]. Patient designates her son to be her surrogate. 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 Smoking status: Never smoker Second hand tobacco smoke exposure: No Alcohol intake: former Substance use: never Spiritual care concerns: No Exam Narrative: EXAMINATION OF ORGAN SYSTEMS/BODY AREAS: Constitutional: Vital signs per nursing GENERAL: Staring into space, not responsive to verbal stimuli HEAD: Normal with no signs of head trauma. EYES: conjunctiva normal LUNGS: Nonlabored breathing. HEART: [Regular rate and rhythm] ABD: [Soft], [nontender to palpation] EXT: No signs of trauma SKIN: No decubitus ulcers NEURO: Only responds to painful stimuli PSYC: Not responding to questions Course Vital Signs Vital signs: Vital Signs Temperature 98.1 F 04/24/22 11:27 Pulse Rate 73 04/24/22 11:27 Respiratory Rate 14 04/24/22 11:27 Blood Pressure 155/90 H 04/24/22 11:27 Pulse Oximetry 100 04/24/22 11:27 Oxygen Delivery Room Air 04/24/22 11:27 Temperature 98.1 F 04/24/22 11:27 Pulse Rate 84 04/24/22 12:15 Respiratory Rate 16 04/24/22 12:15 Blood Pressure 139/89 04/24/22 12:15 Pulse Oximetry 99 04/24/22 12:15 Oxygen Delivery Room Air 04/24/22 11:27 MDM - Altered Mental Status MDM Narrative Medical decision making narrative: 86-year-old female presenting with altered mental status,
[2022-04-24 12:18] LABS: Alanine Aminotransferase 13 U/L (6-35); Albumin Level 3.5 g/dL (3.5-5.1); Alkaline Phosphatase 101 U/L (38-126); Anion Gap 0 mmol/L (8-16); Aspartate Amino Transferase 37 U/L (14-36); Bilirubin,Total 0.6 mg/dL (0.2-1.3); Blood Urea Nitrogen 18 mg/dL (7-17); Calcium 8.6 mg/dL (8.4-10.2); Carbon Dioxide 29 mmol/L (22-30); Chloride 112 mmol/L (98-107); Estimated Glomerular Filt Rate 53; Glucose 117 mg/dL (65-110); INR 1.1; Potassium 3.9 mmol/L (3.4-5.0); Prothrombin Time 13.4 Seconds (11.1-14.7); Sodium 141 mmol/L (137-145)
[2022-04-24 12:18] LABS: Appearance Urine Cloudy (Clear); Bilirubin Urine Negative (Negative); Blood Urine 2+ (Negative); Glucose Urine UA Negative (Negative); Ketones Urine Trace mg/dL (Negative); Leukocyte Esterase Ur 3+ LEU/UL (Negative); Nitrate Urine Positive (Negative); Protein Urine 1+ mg/dL (Negative); Urobilinogen Urine 0.2 mg/dL (<2.0); pH Urine 8.5 (5.0-9.0)
[2022-04-24 12:19] LABS: Partial Thromboplastin Time 34.1 SECONDS (22.3-36.8)
[2022-04-24 12:20] LABS: Add Urine Microscopic? YES; Color Urine Light Yellow (Yellow)
[2022-04-24 12:22] LABS: Bacteria Urine 4+ /hpf; Squamous Epithelial Cell Urine Rare /hpf (Few); WBC Clumps Urine Present /HPF; WBC Urine >75 /hpf
[2022-04-24 13:31] LABS: SARS-CoV-2 RNA PCR Negative
[2022-04-24] MEDS: ERTAPENEM 1 GM/NS 50 ML 1 GM/50 ML BAG IVPB (13:48)
--- NOTE | 2022-04-24 15:43 | ADMGEN ---
This patient, Brigette Moreira, was admitted to Medical Room 247-. Patient/family oriented to hospital policies and general routines including ID bracelet, bed and alarms, visiting hours, pain management, procedures, bathroom and other care routines, personal items, smoking policy, room service/diet, and visiting hours. Information on how to activate the Rapid Response Team has been discussed. Patient/Family are encouraged to report perceived risks to care and to ask questions if they do not understand what they are told or what they should do.
--- NOTE | 2022-04-24 16:43 | PM.IMHP ---
H&P: HPI History of Present Illness Date/Time: Patient was placed observation status for expected length of stay less than 23 hours for management, will plan to re-evaluate tomorrow for improvement. 04/24/22 16:43 Chief Complaint: Altered mental status Narrative: Ms. Moreira is an 86-year-old female who presented to the emergency room from [facility] care facility for an altered mental status. Patient was recently hospitalized approximately 1 month ago for similar complaints and was noted to have a urinary tract infection with ESBL. At this point time patient is unresponsive but will awaken to sternal rubbing and then quickly goes back to to sleep. I am unable to get any type of history from the patient at this time. I am unable to obtain any type of history from the patient so per previous medical records patient does have a history of dementia, atrial fibrillation, hypercholesterolemia, urinary tract infections (frequent), macular degeneration, anxiety, depression, and a brain bleed. Review of Systems Review of Systems: I am unable to obtain a full review of systems secondary to patient's clinical condition PMFSH Past Medical History Medical History (Updated 04/24/22 @ 16:58 by Lizzette Vasquez APRN) Anemia Anxiety Atrial fibrillation Chronic pain Depression Dyslipidemia Macular degeneration Surgical History Surgical History (Updated 04/24/22 @ 16:53 by Lizzette Vasquez APRN) History of cholecystectomy History of hysterectomy History of total right knee replacement Family History Family History Mother Brain aneurysm Sibling Brain aneurysm Mother Family history of arthritis Father Colon cancer Mother Acute myocardial infarction Social History Social History Social History: Patient is a resident of [facility]. Patient designates her son to be her surrogate. 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 Smoking status: Never smoker Second hand tobacco smoke exposure: No Alcohol intake: never Substance use: never Spiritual care concerns: No Meds Home Medications and Allergies Home Medications Medication Instructions Recorded Confirmed Type aspirin 81 mg chewable tablet 81 mg PO DAILY 02/28/22 04/24/22 History donepezil 10 mg tablet 10 mg DAILY 02/28/22 04/24/22 History loperamide 2 mg capsule 2 mg PO Q6H PRN Diarrhea 02/28/22 04/24/22 History lorazepam 0.5 mg tablet 0.25 mg PO BID 02/28/22 04/24/22 History ondansetron 8 mg disintegrating 8 mg PO TID PRN Nausea 02/28/22 04/24/22 History tablet pravastatin 20 mg tablet 20 mg PO HS 02/28/22 04/24/22 History sumatriptan succinate 25 mg tablet 25 mg PO DAILY PRN Headache 02/28/22 04/24/22 History tamsulosin 0.4 mg capsule 0.4 mg PO HS 02/28/22 04/24/22 History famotidine 20 mg tablet 20 mg PO DAILY 03/01/22 04/24/22 History potassium chloride 10 mEq 10 meq PO DAILY 03/01/22 04/24/22 History capsule,extended release sertraline 50 mg tablet 50 mg PO DAILY 03/01/22 04/24/22 History ertapenem 1 gram solution for 500 mg IV Q24H #7 ea 03/03/22 Rx injection ferrous sulfate 325 mg (65 mg 324 mg PO BIDWM #60 tabs 03/03/22 04/24/22 Rx iron) tablet polyethylene glycol 3350 17 gram 17 g PO QAM #30 ea 03/03/22 04/24/22 Rx oral powder packet (Miralax) sodium chloride 0.9 % injection 1 syr IV PUSH Q8HR #600 mL 03/03/22 Rx syringe tramadol 50 mg tablet 50 mg PO TID #5 tabs 03/03/22 04/24/22 Rx Allergies Allergy/AdvReac Type Severity Reaction Status Date / Time acetaminophen Allergy Unknown Unknown Verified 02/28/22 20:05 bacitracin Allergy Unknown Unknown Verified 02/28/22 20:05 clonazepam Allergy Unknown Unknown Verified 02/28/22 20:05 codeine Allergy Unknown Unknown Verified 02/28/22 20:05 hydrocodone Allergy Unknown Unknown Verified 02/28/22 20:05 morph
[2022-04-24] MEDS: HEPARIN SODIUM 5,000 UNITS/ML VIAL 5000 UNITS SUB-Q (21:14)
[2022-04-25] VITALS (11 sets, daily range): BP systolic 144–153; BP diastolic 66–76; PULSE 63–103; RESP 12–20; TEMP 36.4–36.9; O2SAT 96–99
[2022-04-25] MEDS: SODIUM CHLORIDE 0.9% IV 1,000 ML 100 ML IV CONT ×3 (01:04→21:06)
[2022-04-25] MEDS: SODIUM CHLORIDE 0.9% IV 500 ML IV CONT (01:04)
[2022-04-25 07:05] LABS: Basophils Percent Auto 0.2 % (0.2-1.2); Eosinophils Percent Auto 0.3 % (0-4.4); Hematocrit 38.8 % (37.0-47.0); Hemoglobin 12.4 g/dL (12.0-15.0); Immature Granulocyte Absolute 0.02 K/mm3 (0.00-0.031); Immature Granulocyte Percent A 0.2 % (0-0.5); Lymphocytes Absolute Auto 2.42 K/mm3 (0.9-3.2); Lymphocytes Percent Auto 28.2 % (18.3-44.2); Mean Corpuscular Hemoglobin 31.8 pg (26-34); Mean Corpuscular Volume 99.5 fl (80-100); Mean Platelet Volume 9.7 fl (7.4-10.4); Monocytes Absolute Auto 0.6 K/mm3 (0.1-0.6); Monocytes Percent Auto 6.4 % (2.6-8.5); Neutrophils Absolute Auto 5.5 K/mm3 (1.3-6.7); Neutrophils Percent Auto 64.7 % (45.5-73.1); Platelet Count Result 162 k/mm3 (150-375); Red Cell Distribution Width 15.5 % (11.5-14.5); White Blood Count 8.6 K/mm3 (4.5-10.0)
[2022-04-25 07:16] LABS: Anion Gap 4 mmol/L (8-16); Blood Urea Nitrogen 19 mg/dL (7-17); Calcium 8.5 mg/dL (8.4-10.2); Carbon Dioxide 25 mmol/L (22-30); Chloride 112 mmol/L (98-107); Estimated CRCL calculation 37 ml/min; Estimated Glomerular Filt Rate 59; Glucose 109 mg/dL (65-110); Magnesium 2.3 mg/dL (1.6-2.3); Potassium 3.9 mmol/L (3.4-5.0); Sodium 141 mmol/L (137-145)
[2022-04-25] MEDS: ERTAPENEM 1 GM/NS 50 ML 1 GM/50 ML BAG IVPB (08:26)
[2022-04-25] MEDS: HEPARIN SODIUM 5,000 UNITS/ML VIAL 5000 UNITS SUB-Q ×2 (08:27→21:01)
--- NOTE | 2022-04-25 11:59 | PCSTNOTE ---
Please refer to the Bedside Swallow Evaluation in the EMR. Please note, silent aspiration cannot be ruled out at bedside.
--- NOTE | 2022-04-25 12:00 | PM.IMPN ---
Progress Note: A&P Assessment and Plan (1) Acute UTI: Code(s): N39.0 - Urinary tract infection, site not specified Status: Acute Assessment and Plan: patient does have urinary tract infection per urinalysis. Patient was here approximately 1 month ago for here tract and it was noted she had ESBL. At this point time will place patient ertapenem 1 g daily. Will await culture and sensitivity report And adjust antibiotic therapy as needed. 04/25/2022 interval history: Patient remains somnolent and confused unable to provide any review of symptoms, her urine profile is very similar to her previous admission with a UTI E coli ESBL, patient started on ertapenem, patient was sensitive to the antibiotic on her last admission, will CPM. will have PT OT evaluate the patient (2) Altered mental status: Code(s): R41.82 - Altered mental status, unspecified Status: Acute Assessment and Plan: Altered mental status most likely secondary to urinary tract infection. Will gently hydrate patient and continue with antibiotics and see if there is any improvement. (3) Atrial fibrillation: Code(s): I48.91 - Unspecified atrial fibrillation Status: Acute Assessment and Plan: Patient remains in atrial fibrillation and does have a slow ventricular response at times. Patient is not on any anticoagulation secondary to history of brain bleed and falls. Subjective Date/time seen: 04/25/22 12:00 HPI: Ms. Jerez is an 86-year-old female who presented to the emergency room from [facility] for an altered mental status.? Patient was recently hospitalized approximately 1 month ago for similar complaints and was noted to have a urinary tract infection with ESBL.? At this point time patient is unresponsive but will awaken to sternal rubbing and then quickly goes back to to sleep.? I am unable to get any type of history from the patient at this time.? I am unable to obtain any type of history from the patient so per previous medical records patient does have a history of dementia, atrial fibrillation, hypercholesterolemia, urinary tract infections (frequent), macular degeneration, anxiety, depression, and a brain bleed. 04/25/2022 interval history: Patient remains somnolent and confused unable to provide any review of symptoms, her urine profile is very similar to her previous admission with a UTI E coli ESBL, patient started on ertapenem, patient was sensitive to the antibiotic on her last admission, will CPM. will have PT OT evaluate the patient Review of Systems Review of Systems: ROS unobtainable: Yes unobtainable due to medical condition Exam Narrative: elderly frail Patient is comfortable, NAD HEENT: eyes are clear and none icteric LUNGS: normal respiratory effort ABD: not distended Lower extremities: no edema SKIN: nonjaundiced Neuro: confused. Objective Data Vital Signs Vital Signs: Vital Signs - 24 hr 04/24/22 12:15 04/24/22 12:15 04/24/22 14:40 Temperature Pulse Rate 77 84 60 Respiratory Rate 13 16 15 Blood Pressure 154/81 H 139/89 136/70 Pulse Oximetry 98 99 98 Oxygen Delivery 04/24/22 15:50 04/24/22 16:00 04/24/22 17:13 Temperature 97.3 F L Pulse Rate 112 H 99 Respiratory Rate 16 Blood Pressure 164/73 H Pulse Oximetry 95 Oxygen Delivery Room Air 04/24/22 22:00 04/24/22 20:00 04/25/22 00:00 Temperature 97.0 F L Pulse Rate 93 73 103 H Respiratory Rate 20 Blood Pressure 149/83 H Pulse Oximetry 99 Oxygen Delivery 04/25/22 04:00 04/25/22 06:00 04/25/22 08:30 Temperature 97.5 F L Pulse Rate 64 70 Respiratory Rate 20 20 Blood Pressure 153/70 H Pulse Oximetry 99 99 Oxygen Delivery Room Air 04/25/22 09:41 04/25/22 08:03 04/25/22 10:50 Temperature Pulse Rate 63 Respiratory Rate Blood Pressure Pulse Oximetry 99 Oxygen Delivery Room Air Room Air Intake/Output Intake/Output: Intake & Ou
[2022-04-25] MEDS: traMADol HCL (*CRX) 50 MG TABLET PO (15:55)
[2022-04-26] VITALS (9 sets, daily range): BP systolic 132–147; BP diastolic 66–74; PULSE 68–95; RESP 16–18; TEMP 36.1–37; O2SAT 96–100
[2022-04-26] MEDS: traMADol HCL (*CRX) 50 MG TABLET PO ×2 (00:05→13:59)
[2022-04-26 05:35] LABS: IFOB Positive Control Positive; Immunochemical Fecal Occult Bl Negative (N)
[2022-04-26 05:58] LABS: Hematocrit 33.9 % (37.0-47.0); Hemoglobin 11.1 g/dL (12.0-15.0); Mean Corpuscular HGB Conc 32.7 g/dl (32-36); Mean Corpuscular Hemoglobin 32.6 pg (26-34); Mean Corpuscular Volume 99.4 fl (80-100); Platelet Count Result 159 k/mm3 (150-375); Red Blood Count 3.41 M/mm3 (4.2-5.4); Red Cell Distribution Width 15.3 % (11.5-14.5); White Blood Count 8.9 K/mm3 (4.5-10.0)
[2022-04-26 06:41] LABS: Anion Gap 5 mmol/L (8-16); Blood Urea Nitrogen 14 mg/dL (7-17); Carbon Dioxide 20 mmol/L (22-30); Chloride 112 mmol/L (98-107); Estimated CRCL calculation 47 ml/min; Estimated Glomerular Filt Rate > 60; Glucose 77 mg/dL (65-110); Potassium 3.2 mmol/L (3.4-5.0); Sodium 137 mmol/L (137-145)
[2022-04-26] MEDS: POTASSIUM CHLORIDE 20 MEQ TABLET 40 MEQ PO (08:48)
[2022-04-26] MEDS: ERTAPENEM 1 GM/NS 50 ML 1 GM/50 ML BAG IVPB (08:49)
[2022-04-26] MEDS: HEPARIN SODIUM 5,000 UNITS/ML VIAL 5000 UNITS SUB-Q ×2 (08:49→20:34)
[2022-04-26] MEDS: SODIUM CHLORIDE 0.9% IV 1,000 ML 100 ML IV CONT ×2 (11:27→23:23)
--- NOTE | 2022-04-26 13:13 | PM.IMPN ---
Progress Note: A&P Assessment and Plan (1) Acute UTI: Code(s): N39.0 - Urinary tract infection, site not specified Status: Acute Assessment and Plan: patient does have urinary tract infection per urinalysis. Patient was here approximately 1 month ago for here tract and it was noted she had ESBL. At this point time will place patient ertapenem 1 g daily. Will await culture and sensitivity report And adjust antibiotic therapy as needed. 04/25/2022 interval history: Patient remains somnolent and confused unable to provide any review of symptoms, her urine profile is very similar to her previous admission with a UTI E coli ESBL, patient started on ertapenem, patient was sensitive to the antibiotic on her last admission, will CPM. will have PT OT evaluate the patient. 04/26/2022 interval history: Today patient is more alert and communicative, states feeling much denies any fever or chills, her urine profile is very similar to her previous admission with a UTI E coli ESBL, currently urine culture is growing Gram-negative bacilli, patient started on ertapenem, patient was sensitive to the antibiotic on her last admission, will CPM. will have PT OT evaluate the patient. (2) Altered mental status: Code(s): R41.82 - Altered mental status, unspecified Status: Acute Assessment and Plan: Altered mental status most likely secondary to urinary tract infection. Will gently hydrate patient and continue with antibiotics and see if there is any improvement. (3) Atrial fibrillation: Code(s): I48.91 - Unspecified atrial fibrillation Status: Acute Assessment and Plan: Patient remains in atrial fibrillation and does have a slow ventricular response at times. Patient is not on any anticoagulation secondary to history of brain bleed and falls. Subjective Date/time seen: 04/26/22 13:13 04/26/2022 interval history: Today patient is more alert and communicative, states feeling much denies any fever or chills, her urine profile is very similar to her previous admission with a UTI E coli ESBL, currently urine culture is growing Gram-negative bacilli, patient started on ertapenem, patient was sensitive to the antibiotic on her last admission, will CPM. will have PT OT evaluate the patient Review of Systems Review of Systems: patient denies any new symptoms Exam Narrative: elderly frail Patient is comfortable, NAD HEENT: eyes are clear and none icteric LUNGS: normal respiratory effort ABD: not distended Lower extremities: no edema SKIN: nonjaundiced Neuro: confused. Objective Data Vital Signs Vital Signs: Vital Signs - 24 hr 04/25/22 14:00 04/25/22 16:03 04/25/22 19:20 Temperature 97.7 F 98.5 F Pulse Rate 94 90 95 Respiratory Rate 12 17 Blood Pressure 144/76 H 144/66 H Pulse Oximetry 97 96 Oxygen Delivery 04/25/22 20:00 04/26/22 00:00 04/26/22 04:00 Temperature Pulse Rate 66 87 72 Respiratory Rate Blood Pressure Pulse Oximetry Oxygen Delivery 04/26/22 05:01 04/26/22 08:00 04/26/22 08:50 Temperature 98.6 F Pulse Rate 77 79 Respiratory Rate 17 Blood Pressure 147/74 H Pulse Oximetry 97 Oxygen Delivery Room Air Intake/Output Intake/Output: Intake & Output 04/23/22 04/24/22 04/25/22 04/26/22 23:59 23:59 23:59 23:59 Intake Total 50 2960 1610 Output Total 100 Balance 50 2960 1510 Meds/Results Medications: Active Medications Generic Name Dose Route Start Last Admin Trade Name Freq PRN Reason Stop Dose Admin Heparin Sodium (Porcine) 5,000 units 04/24/22 21:00 04/26/22 08:49 Heparin Sodium 5,000 Units/Ml Vial SUB-Q 5,000 units Q12HR ZULLY Administration Ertapenem 1 gm in 50 mls @ 100 mls/hr 04/25/22 09:00 04/26/22 09:20 Invanz 1 Gm/Ns 50 Ml IVPB Infused Q24H ZULLY Infusion Sodium Chloride 1,000 mls @ 100 mls/hr 04/25/22 00:40 04/26/22 11:27 Normal Saline Iv IV CONT 100 mls/h
[2022-04-27 04:00] VITALS: PULSE 62
[2022-04-27 04:50] VITALS: O2SAT 95
[2022-04-27 05:43] LABS: Hematocrit 36.9 % (37.0-47.0); Hemoglobin 11.6 g/dL (12.0-15.0); Mean Corpuscular HGB Conc 31.4 g/dl (32-36); Mean Corpuscular Hemoglobin 31.9 pg (26-34); Mean Corpuscular Volume 101.4 fl (80-100); Mean Platelet Volume 10.3 fl (7.4-10.4); Platelet Count Result 156 k/mm3 (150-375); Red Blood Count 3.64 M/mm3 (4.2-5.4); White Blood Count 7.7 K/mm3 (4.5-10.0)
[2022-04-27 05:58] LABS: Anion Gap 4 mmol/L (8-16); Blood Urea Nitrogen 9 mg/dL (7-17); Calcium 8.4 mg/dL (8.4-10.2); Carbon Dioxide 23 mmol/L (22-30); Chloride 110 mmol/L (98-107); Estimated CRCL calculation 47 ml/min; Estimated Glomerular Filt Rate > 60; Glucose 83 mg/dL (65-110); Potassium 3.1 mmol/L (3.4-5.0); Sodium 137 mmol/L (137-145)
[2022-04-27 06:00] VITALS: BP 146/77; PULSE 85; RESP 20; TEMP 36.1; O2SAT 98
[2022-04-27 08:00] VITALS: PULSE 62
[2022-04-27] MEDS: POTASSIUM CHLORIDE 20 MEQ PACKET (FOR LIQUID) 40 MEQ PO (08:25)
[2022-04-27] MEDS: ERTAPENEM 1 GM/NS 50 ML 1 GM/50 ML BAG IVPB (08:25)
[2022-04-27] MEDS: SODIUM CHLORIDE 0.9% IV 1,000 ML 100 ML IV CONT (08:25)
[2022-04-27] MEDS: HEPARIN SODIUM 5,000 UNITS/ML VIAL 5000 UNITS SUB-Q (08:26)
--- NOTE | 2022-04-27 11:29 | PM.DS ---
DS: Admitting Diagnosis Discharge Date April 27, 2022 Admitting Diagnosis UTI DS: Discharge Diagnosis Discharge Diagnosis (1) Acute UTI: Code(s): N39.0 - Urinary tract infection, site not specified Status: Acute Assessment and Plan: oral antibiotics on discharge (2) Altered mental status: Code(s): R41.82 - Altered mental status, unspecified Status: Acute Assessment and Plan: Altered mental status most likely secondary to urinary tract infection. Improved (3) Atrial fibrillation: Code(s): I48.91 - Unspecified atrial fibrillation Status: Acute Assessment and Plan: Patient remains in atrial fibrillation and does have a slow ventricular response at times. Patient is not on any anticoagulation secondary to history of brain bleed and falls. DS: Summary Hospital Course Hospital Course: the patient was admitted with altered mental status. Does have altered mental status at baseline. Patient was found have a UTI and put on antibiotics. Cultures did grow Proteus sensitive to Rocephin. She will be sent discharged on Omnicef. Altered mental status back to baseline. Time Spent with Patient Time attestation: Total time spent providing and/or coordinating discharge services: Exam Narrative: elderly frail Patient is comfortable, NAD HEENT: eyes are clear and none icteric LUNGS: normal respiratory effort ABD: not distended Lower extremities: no edema SKIN: nonjaundiced Neuro: confused. DS: Data Data Completed and Pending Labs on day of discharge: Labs from last 24 hours 04/27/22 04/27/22 05:13 05:13 WBC 7.7 RBC 3.64 L Hgb 11.6 L Hct 36.9 L MCV 101.4 H MCH 31.9 MCHC 31.4 L RDW 15.0 H Plt Count 156 MPV 10.3 Sodium 137 Potassium 3.1 L Chloride 110 H Carbon Dioxide 23 Anion Gap 4 L BUN 9 D Creatinine 0.70 Estim Creat Clear Calc 47 Estimated GFR > 60 Glucose 83 Calcium 8.4 Discharge Plan Discharge Attending physician on discharge: Jose Roberto Jacob Discharging Clinician: Jose Roberto Jacob Patient Disposition: Home, Self-Care Activity: no preference Diet: as tolerated Patient Instructions: Antibiotic Form, Blood Thinners (GEN) Stand Alone Forms: General Discharge Information Follow-up/Referrals: Demetrius Mccord MD [Primary Care Provider] - Discharge Medications: New cefdinir 300 mg capsule 300 mg PO Q12H Qty: 10 0RF Continued loperamide 2 mg Capsule 2 mg PO Q6H PRN (Reason: Diarrhea) donepezil 10 mg tablet 10 mg DAILY sumatriptan succinate 25 mg tablet 25 mg PO DAILY PRN (Reason: Headache) Rx Instructions: take one tablet at onset of severe headache. may repeat 2 hrs later. Max 2 tabs in 24 hrs ondansetron 8 mg tablet,disintegrating 8 mg PO TID PRN (Reason: Nausea) lorazepam 0.5 mg tablet 0.25 mg PO BID tamsulosin 0.4 mg capsule 0.4 mg PO HS aspirin 81 mg Tablet,Chewable 81 mg PO DAILY pravastatin 20 mg tablet 20 mg PO HS famotidine 20 mg tablet 20 mg PO DAILY potassium chloride 10 mEq capsule, extended release 10 meq PO DAILY sertraline 50 mg tablet 50 mg PO DAILY polyethylene glycol 3350 [Miralax] 17 gram Powder In Packet 17 g PO QAM Qty: 30 0RF ferrous sulfate 325 mg (65 mg iron) Tablet 324 mg PO BIDWM Qty: 60 0RF tramadol 50 mg tablet 50 mg PO TID Qty: 5 0RF Date of admission: 04/25/22 12:51 Primary Care Provider: Demetrius Mccord Admitting Provider: Jagdish Goins Attending physician on admission: Jagdish Goins Condition: Serious Quality VTE Prophylaxis VTE prophylaxis: mechanical ordered and pharmacologic ordered
[2022-04-27 12:00] VITALS: PULSE 63
--- NOTE | 2022-04-27 12:22 | PC.NURSE ---
Patient had several runs of V-tach sometimes reaching heart rates of 160, notified Dr. Jacob and he came to evaluate strips. He determined they were not runs of Vtach but runs of A-fib.
[2022-04-27 13:09] LABS: EDCOVIDSCREEN Negative (Negative)
== END 2022-04-27 13:50 | DRG 690 ==
LOC: ANHED 13:58 → ANH2MED 16:46
PROVIDERS: Family Medicine; Internal Medicine; Nurse Practitioner Adult Health; Admitting Provider Internal Medicine; Emergency Provider Emergency Medicine; PCP Family Medicine; Visit Provider Chiropractor
DX: N39.0 Urinary tract infection, site not specified (principal); B96.4 Proteus (mirabilis) (morganii) as the cause of diseases classified elsewhere; Z20.822 Contact with and (suspected) exposure to COVID-19; I48.91 Unspecified atrial fibrillation; E78.5 Hyperlipidemia, unspecified; H35.30 Unspecified macular degeneration; F03.90 Unspecified dementia, unspecified severity, without behavioral disturbance, psychotic disturbance, mood disturbance, and anxiety; F41.9 Anxiety disorder, unspecified; F32.A Depression, unspecified; Z96.651 Presence of right artificial knee joint; Z79.82 Long term (current) use of aspirin; Z79.899 Other long term (current) drug therapy
CPT/HCPCS: 36415; 51701; 70450; 80048; 80053; 81001; 82274; 83735; 85025; 85027; 85610; 85730; 87077; 87086; 87186; 87426; 92610; 93005; 96361; 96365; 96372; 97110; 97161; 97165; 97530; 99285; A9270; C9803; G0378; J1335; J1644; J7030; J7040; U0003; U0005

== ENCOUNTER 2022-04-30 14:23 | Inpatient (IN) | payer MEDICARE, BC, SELFPAY ==
[2022-04-30] VITALS (7 sets, daily range): BP systolic 106–161; BP diastolic 68–99; PULSE 72–102; RESP 16–20; TEMP 36.2–37.1; O2SAT 95–98; BMI 23.7
--- NOTE | ~2022-04-30 | CT_ITS ---
EXAMINATION: CT brain wo con DATE: 04/30/2022 16:30 INDICATION: TRANSIENT ALTERATION OF AWARENESS. WEAKNESS. CONFUSION. . TECHNIQUE: Computed tomography (CT) of the head was performed without intravenous contrast. The mA wa s adjusted according to patient size. Iterative reconstruction technique was employed. The dose-lengt h product was 605.33 mGy-cm. COMPARISON: 04/24/22 FINDINGS: No acute intracranial hemorrhage or extra-axial fluid collection. No hydrocephalus, mass, or herniation. No acute ischemic infarct. Unremarkable dural venous sinus attenuation. No acute osseous abnormality. The aerated spaces are clear. Moderate chronic atrophy and white matter change. Atherosclerotic intracranial calcifications. IMPRESSION: No acute intracranial process. Reviewed, dictated and finalized at location K.
--- NOTE | 2022-04-30 15:16 | ED.GENADULT ---
HPI - General Adult General Chief complaint: Weakness Stated complaint: Weekness Time Seen by Provider: 04/30/22 14:53 History of Present Illness HPI narrative: 86-year-old female presenting to the emergency department from a local shelter for evaluation of increased confusion, lethargy and patient was combative today. Patient was started antibiotics for urinary tract infection. prison records indicate that she has been on cefdinir for 4 days. Patient states that she feels that her UTI symptoms have improved. Patient is clearly confused on exam. Related Data Allergies Allergy/AdvReac Type Severity Reaction Status Date / Time acetaminophen Allergy Unknown Verified 04/30/22 14:41 [From Darvocet-N] clonazepam [From Klonopin] Allergy Unknown Verified 04/30/22 14:40 codeine Allergy Unknown Verified 04/30/22 14:40 morphine Allergy Unknown Verified 04/30/22 14:40 propoxyphene [From Darvon] Allergy Unknown Verified 04/30/22 14:40 raloxifene [From Evista] Allergy Unknown Verified 04/30/22 14:40 Review of Systems Review of Systems: Patient denies any complaints at this time. Patient has altered ROS unobtainable: Yes unobtainable due to mental status Exam Narrative: APPEARANCE: Well appearing, no pain, no distress, well-nourished. HEAD: normocephalic, atraumatic. EYES: PERRLA/EOMI, conjunctivae clear. NOSE: Normal no drainage NECK: Supple. No adenopathy, no masses. RESPIRATORY: Airway patent, respirations nonlabored. Clear to auscultation bilaterally, no rales, rhonchi, wheezing. CARDIOVASCULAR: Regular rate and rhythm without murmurs rubs or gallops. ABDOMINAL: Soft, nontender, nondistended, normal bowel sounds MUSCULOSKELETAL: Moves all extremities. Strength/ROM intact, No edema, No calf tenderness. NEURO: Alert. Cranial nerves II through XII intact. Grossly intact SKIN: Warm, dry. Normal Color PSYCHIATRIC: Normal affect/mood. Course Course Emergency Course: No urine cultures on file. Patient was started on Rocephin. Blood cultures are pending urine cultures are pending. Patient was discussed with the hospitalist and patient will be admitted. Patient has a history of atrial fibrillation. Patient is not in A. fib with RVR. Patient will be admitted to med telemetry. Vital Signs Vital signs: Vital Signs Temperature 98.7 F 04/30/22 14:30 Pulse Rate 84 04/30/22 14:30 Respiratory Rate 18 04/30/22 14:30 Blood Pressure 142/68 H 04/30/22 14:30 Pulse Oximetry 96 04/30/22 14:30 Oxygen Delivery Room Air 04/30/22 14:30 Temperature 98.7 F 04/30/22 14:30 Pulse Rate 72 04/30/22 18:38 Respiratory Rate 18 04/30/22 18:38 Blood Pressure 144/90 H 04/30/22 18:38 Pulse Oximetry 95 04/30/22 18:38 Oxygen Delivery Room Air 04/30/22 14:30 Medical Decision Making Vital Signs Vital Signs: Vital Signs Temperature 98.7 F 04/30/22 14:30 Pulse Rate 84 04/30/22 14:30 Respiratory Rate 18 04/30/22 14:30 Blood Pressure 142/68 H 04/30/22 14:30 Pulse Oximetry 96 04/30/22 14:30 Oxygen Delivery Room Air 04/30/22 14:30 Temperature 98.7 F 04/30/22 14:30 Pulse Rate 72 04/30/22 18:38 Respiratory Rate 18 04/30/22 18:38 Blood Pressure 144/90 H 04/30/22 18:38 Pulse Oximetry 95 04/30/22 18:38 Oxygen Delivery Room Air 04/30/22 14:30 Lab Data Lab results reviewed: Yes I reviewed the patient's lab results. Result diagrams: 04/30/22 15:41 04/30/22 15:41 Labs: Lab Results 04/30/22 04/30/22 04/30/22 Range/Units 15:41 15:41 15:41 WBC 8.1 (4.5-10.0) K/mm3 RBC 3.76 L (4.2-5.4) M/mm3 Hgb 12.2 (12.0-15.0) g/dL Hct 38.0 (37.0-47.0) % MCV 101.1 H (80-100) fl MCH 32.4 (26-34) pg MCHC 32.1 (32-36) g/dl RDW 15.4 H (11.5-14.5) % Plt Count 186 (150-375) k/mm3 MPV 10.0 (7.4-10.4) fl Immature Gran % (Auto) 0.2 (0-0.5) % Neut % (Auto) 59.3 (45.5-73.1) % Lymph % (Aut
[2022-04-30 15:47] LABS: Basophils Percent Auto 0.2 % (0.2-1.2); Eosinophils Absolute Auto 0.2 K/mm3 (0-0.3); Eosinophils Percent Auto 2.4 % (0-4.4); Hemoglobin 12.2 g/dL (12.0-15.0); Immature Granulocyte Absolute 0.02 K/mm3 (0.00-0.031); Immature Granulocyte Percent A 0.2 % (0-0.5); Lymphocytes Absolute Auto 2.44 K/mm3 (0.9-3.2); Lymphocytes Percent Auto 30.3 % (18.3-44.2); Mean Corpuscular HGB Conc 32.1 g/dl (32-36); Mean Corpuscular Hemoglobin 32.4 pg (26-34); Mean Corpuscular Volume 101.1 fl (80-100); Monocytes Absolute Auto 0.6 K/mm3 (0.1-0.6); Monocytes Percent Auto 7.6 % (2.6-8.5); Neutrophils Absolute Auto 4.8 K/mm3 (1.3-6.7); Neutrophils Percent Auto 59.3 % (45.5-73.1); Platelet Count Result 186 k/mm3 (150-375); Red Blood Count 3.76 M/mm3 (4.2-5.4); Red Cell Distribution Width 15.4 % (11.5-14.5); White Blood Count 8.1 K/mm3 (4.5-10.0)
[2022-04-30 16:02] LABS: Lactic Acid Reflex 1.1 mmol/L (0.7-2.0)
[2022-04-30 16:06] LABS: Alanine Aminotransferase 14 U/L (6-35); Albumin Level 3.6 g/dL (3.5-5.1); Alkaline Phosphatase 72 U/L (38-126); Anion Gap 6 mmol/L (8-16); Aspartate Amino Transferase 35 U/L (14-36); Bilirubin,Total 0.9 mg/dL (0.2-1.3); Blood Urea Nitrogen 15 mg/dL (7-17); Calcium 9.1 mg/dL (8.4-10.2); Carbon Dioxide 25 mmol/L (22-30); Chloride 106 mmol/L (98-107); Estimated CRCL calculation 33 ml/min; Estimated Glomerular Filt Rate 53; Glucose 107 mg/dL (65-110); Potassium 4.2 mmol/L (3.4-5.0); Sodium 137 mmol/L (137-145)
[2022-04-30 16:27] LABS: Appearance Urine Turbid (Clear); Bilirubin Urine Negative (Negative); Blood Urine 2+ (Negative); Color Urine Yellow (Yellow); Glucose Urine UA Negative (Negative); Ketones Urine Negative (Negative); Leukocyte Esterase Ur 3+ LEU/UL (Negative); Nitrate Urine Negative (Negative); Protein Urine 2+ mg/dL (Negative); Specific Grav Ur 1.025 (1.001-1.035); Urobilinogen Urine 0.2 mg/dL (<2.0); pH Urine 6.5 (5.0-9.0)
[2022-04-30 16:33] LABS: Amorphous Sediment Urine Few; Bacteria Urine Trace /hpf; RBC Urine 21-50 /hpf (0-2); WBC Clumps Urine Present /HPF; WBC Urine >75 /hpf
[2022-04-30 16:34] LABS: Add Urine Microscopic? YES
--- NOTE | 2022-04-30 17:35 | ECG_ITS ---
Measurements Intervals [place] Rate: 80 P: VA: 0 QRS: -32 QRSD: 94 T: 20 QT: 348 QTc: 403 Interpretive Statements ATRIAL FIBRILLATION MARKED LEFT AXIS DEVIATION [QRS AXIS < -30] INCOMPLETE RIGHT BUNDLE BRANCH BLOCK [90+ ms QRS DURATION, TERMINAL R IN V1/V2, 40+ ms S IN I/aVL/V4/V5/V6] MINIMAL ST DEPRESSION [0.025+ mV ST DEPRESSION] NO PREVIOUS ECG AVAILABLE FOR COMPARISON Electronically Signed On 05-02-2022 15:28:41 CDT by Licha Soto MD
--- NOTE | 2022-04-30 18:30 | PM.IMHP ---
H&P: HPI History of Present Illness Date/Time: 04/30/22 18:30 Chief Complaint: Increased weakness. Narrative: This is an 86-year-old female with dementia, atrial fibrillation, and anxiety presented to the emergency department via EMS from [facility] for evaluation of weakness. She has a poor historian and as such almost all the following is obtained via a review of her electronic medical records. According to detention staff, she is on day 4 of cefdinir for urinary tract infection but she is not getting better. In fact she has been more weak, confused, and lethargic the last 24 hours. Today she was more combative than usual and she was sent to the ER for evaluation. Blood pressures were a bit elevated however the rest of her vital signs are unremarkable. Labs were also fairly unremarkable. Urine still looks infected with 3+ leukocyte esterase, greater than 75 WBCs, and trace bacteria. She is being admitted in this setting for possible failure of outpatient treatment. At the time my evaluation she is angry at the ER nurse and believes that the nurses trying to poison her with the IV. She tells me she is feeling much better and that she wants to be left alone. She denies abdominal pain, dysuria, and fever. She answered no other questions. Review of Systems Review of Systems: ROS unobtainable: Yes unobtainable due to medical condition PMFSH Past Medical History Medical History (Updated 05/01/22 @ 00:08 by Maria E Walter PA-C) Anxiety Atrial fibrillation B12 deficiency Dementia Gastroesophageal reflux disease Macular degeneration Vitamin D deficiency Surgical History Surgical History (Updated 05/01/22 @ 00:03 by Maria E Walter PA-C) Surgical history unknown Family History Family History (Updated 05/01/22 @ 00:04 by Maria E Walter PA-C) Other Family history unknown Social History Social History (Updated 05/01/22 @ 00:05 by Maria E Walter PA-C) Social History: Surrogate decision maker: Darren Moreira or Starla Padilla. Code status: Do not resuscitate. Smoking status: Unknown if ever smoked Alcohol intake: unknown Substance use: unknown Additional living arrangements comments: Resident of [facility]. Occupation/Education: retired Spiritual care concerns: No Meds Home Medications and Allergies Home Medications Medication Instructions Recorded Confirmed Type Artificial Tears 1 drp EACH EYE Q6H PRN Dry Eyes 04/30/22 04/30/22 History Tylenol 500 mg PO HS 04/30/22 04/30/22 History aluminum-mag hydroxide-simethicone 20 ml PO Q4H PRN Heartburn 04/30/22 04/30/22 History 400 mg-400 mg-40 mg/5 mL oral susp (Maalox Maximum Strength) aspirin 81 mg chewable tablet 81 mg PO DAILY 04/30/22 04/30/22 History cefdinir 300 mg capsule 1 cap PO BID 04/30/22 04/30/22 History cholecalciferol (vitamin D3) 25 25 mcg PO DAILY 04/30/22 04/30/22 History mcg (1,000 unit) tablet docusate sodium 100 mg PO BID 04/30/22 04/30/22 History donepezil 10 mg tablet 10 mg PO DAILY 04/30/22 04/30/22 History famotidine 20 mg tablet 20 mg PO DAILY 04/30/22 04/30/22 History ferrous sulfate 325 mg (65 mg 325 mg PO BID 04/30/22 04/30/22 History iron) tablet loperamide 2 mg capsule 2 mg PO Q6H PRN Diarrhea 04/30/22 04/30/22 History lorazepam 0.5 mg tablet 0.5 mg PO BID 04/30/22 04/30/22 History ondansetron 8 mg disintegrating 8 mg translingual Q8H Nausea 04/30/22 04/30/22 History tablet polyethylene glycol 17 ea DAILY PRN Constipation 04/30/22 04/30/22 History potassium chloride 10 mEq 10 meq PO DAILY 04/30/22 04/30/22 History capsule,extended release pravastatin 20 mg tablet 20 mg PO DAILY 04/30/22 04/30/22 History sertraline 50 mg tablet 1 tablet PO DAILY 04/30/22 04/30/22 History sumatriptan succinate 25 mg tablet 25 mg PO ONCE PRN Headache 04/30/22 04/30/22 History tamsulosin 0.4 mg capsule 0.4 mg PO DAILY 04/30/22 04/30/22 History tramadol 50 mg tablet 50 mg PO Q8H 04/30/22 04/30/22 His
--- NOTE | 2022-04-30 19:17 | PC.NURSE ---
Assumed care of pt at this time. Pt resting on stretcher, A&Ox1.
--- NOTE | 2022-04-30 19:36 | PC.NURSE ---
Called report to warner HANSON on . Room is not clean and will call this RN when ready
--- NOTE | 2022-04-30 21:07 | ADMGEN ---
This patient, Brigette Moreira, was admitted to Medical Room 343-01. Patient/family oriented to hospital policies and general routines including ID bracelet, bed and alarms, visiting hours, pain management, procedures, bathroom and other care routines, personal items, smoking policy, room service/diet, and visiting hours. Information on how to activate the Rapid Response Team has been discussed. Patient/Family are encouraged to report perceived risks to care and to ask questions if they do not understand what they are told or what they should do.
[2022-05-01] VITALS (7 sets, daily range): BP systolic 122–148; BP diastolic 58–90; PULSE 52–95; RESP 14–18; TEMP 36.5–36.8; O2SAT 96–99
[2022-05-01] MEDS: DONEPEZIL HCL 10 MG TABLET PO (08:48)
[2022-05-01] MEDS: SERTRALINE HCL 50 MG TABLET PO (08:48)
[2022-05-01] MEDS: POTASSIUM CHLORIDE 10 MEQ TABLET.ER PO (08:48)
[2022-05-01] MEDS: FAMOTIDINE 20 MG TABLET PO (08:48)
[2022-05-01] MEDS: ASPIRIN 81 MG CHEWABLE TABLET PO (08:48)
[2022-05-01] MEDS: CHOLECALCIFEROL 1,000 UNITS TABLET 1000 UNITS PO (08:48)
[2022-05-01] MEDS: FERROUS SULFATE 324 MG TABLET PO ×2 (08:48→17:09)
[2022-05-01] MEDS: DOCUSATE SODIUM 100 MG CAPSULE PO ×2 (08:48→17:09)
[2022-05-01] MEDS: OPTI-GEN TAB 1 TABLET PO ×2 (08:49→17:09)
[2022-05-01] MEDS: LORazepam (*CRX) 0.5 MG TABLET PO ×2 (08:51→17:11)
[2022-05-01 09:27] LABS: Hematocrit 32.9 % (37.0-47.0); Hemoglobin 10.7 g/dL (12.0-15.0); Mean Corpuscular HGB Conc 32.5 g/dl (32-36); Mean Corpuscular Hemoglobin 31.8 pg (26-34); Mean Corpuscular Volume 97.9 fl (80-100); Mean Platelet Volume 9.9 fl (7.4-10.4); Platelet Count Result 174 k/mm3 (150-375); Red Blood Count 3.36 M/mm3 (4.2-5.4); Red Cell Distribution Width 15.2 % (11.5-14.5); White Blood Count 6.3 K/mm3 (4.5-10.0)
[2022-05-01 09:38] LABS: Anion Gap 3 mmol/L (8-16); Blood Urea Nitrogen 12 mg/dL (7-17); Calcium 8.7 mg/dL (8.4-10.2); Carbon Dioxide 27 mmol/L (22-30); Chloride 109 mmol/L (98-107); Estimated CRCL calculation 43 ml/min; Estimated Glomerular Filt Rate > 60; Glucose 93 mg/dL (65-110); Magnesium 2.1 mg/dL (1.6-2.3); Potassium 3.6 mmol/L (3.4-5.0); Sodium 139 mmol/L (137-145)
--- NOTE | 2022-05-01 11:15 | PM.IMPN ---
Progress Note: A&P Assessment and Plan (1) Urinary tract infection: Code(s): N39.0 - Urinary tract infection, site not specified Status: Acute Assessment and Plan: UA appears turbid, 3+ leukocyte esterase, WBC >75, and trace bacteria Continue ceftriaxone Urine culture pending adjust therapy with culture results (2) Dementia: Code(s): F03.90 - Unspecified dementia without behavioral disturbance Status: Acute Assessment and Plan: seems to be doing better, knew place, person, and almost got the month right May be related to urinary tract infection. Initiate fall precautions. Continue donepezil. (3) Atrial fibrillation: Code(s): I48.91 - Unspecified atrial fibrillation Status: Acute Assessment and Plan: Not on anticoagulation, likely due to fall risk. Looks controlled at this time Tele monitor (4) Anxiety: Code(s): F41.9 - Anxiety disorder, unspecified Status: Acute Assessment and Plan: Continue sertraline and lorazepam. (5) Anemia: Code(s): D64.9 - Anemia, unspecified Status: Acute Assessment and Plan: H/H 10.7/32.9 Seems stable at this time Anemia labs in the am Continue home ferrous sulfate Adjust supplementation as indicated Time Spent With Patient Time with patient: Greater than 35 minutes Subjective Date/time seen: 05/01/22 11:15 Interval history: 05/01/22 11:15 Patient was sleeping when I went to examine her. She seemed to be in good spirits and knew where she was and was close to the month. She denies any chest pain, shortness of breath, nausea, vomiting, diarrhea, constipation. She also denied any kind of frequency urgency with urinary symptoms. She was very pleasant. 04/30/22? 18:30 This is an 86-year-old female with dementia, atrial fibrillation, and anxiety presented to the emergency department via EMS from [facility] for evaluation of weakness. She has a poor historian and as such almost all the following is obtained via a review of her electronic medical records. According to shelter staff, she is on day 4 of cefdinir for urinary tract infection but she is not getting better. In fact she has been more weak, confused, and lethargic the last 24 hours. Today she was more combative than usual and she was sent to the ER for evaluation. Blood pressures were a bit elevated however the rest of her vital signs are unremarkable. Labs were also fairly unremarkable. Urine still looks infected with 3+ leukocyte esterase, greater than 75 WBCs, and trace bacteria. She is being admitted in this setting for possible failure of outpatient treatment. At the time my evaluation she is angry at the ER nurse and believes that the nurses trying to poison her with the IV. She tells me she is feeling much better and that she wants to be left alone. She denies abdominal pain, dysuria, and fever. She answered no other questions. Review of Systems Review of Systems: All systems reviewed & are unremarkable except as noted in HPI and below Exam Const: General: cooperative, no acute distress, well developed, ill appearing chronically and tired appearing Nutritional Appearance: well nourished Orientation/consciousness: oriented to person, oriented to place and confusion (confused on time ) Limitations: no limitations HENMT: Head: normal to inspection Ears: hearing grossly normal bilaterally General nose exam: Normal external nose present Mouth: Yes Normal oral and palatal mucosa present, Yes lip normal and Yes tongue normal Teeth and gingiva: abnormal tooth and associated gingiva and poor dentition Eyes: General: appearance normal, both eyes and all related structures Visual Chisholm: normal visual chisholm by confrontation Alignment and Position: alignment normal Periorbital: periorbital findings normal Eyelids: eyelids normal Conjunctivae: conjunctivae normal
[2022-05-01] MEDS: TAMSULOSIN HCL 0.4 MG CAPSULE PO (17:10)
[2022-05-01] MEDS: PRAVASTATIN SODIUM 20 MG TABLET PO (17:10)
[2022-05-01] MEDS: ACETAMINOPHEN 500 MG TABLET PO (19:50)
[2022-05-02] VITALS (11 sets, daily range): BP systolic 120–138; BP diastolic 64–70; PULSE 59–111; RESP 14–22; TEMP 36.6–36.8; O2SAT 93–99; BMI 24.2
[2022-05-02 05:45] LABS: Basophils Percent Auto 0.3 % (0.2-1.2); Eosinophils Absolute Auto 0.2 K/mm3 (0-0.3); Eosinophils Percent Auto 3.5 % (0-4.4); Hemoglobin 10.9 g/dL (12.0-15.0); Immature Granulocyte Absolute 0.01 K/mm3 (0.00-0.031); Immature Granulocyte Percent A 0.2 % (0-0.5); Lymphocytes Absolute Auto 2.92 K/mm3 (0.9-3.2); Lymphocytes Percent Auto 44.6 % (18.3-44.2); Mean Corpuscular HGB Conc 32.1 g/dl (32-36); Mean Corpuscular Hemoglobin 32.2 pg (26-34); Mean Corpuscular Volume 100.6 fl (80-100); Mean Platelet Volume 10.3 fl (7.4-10.4); Monocytes Absolute Auto 0.5 K/mm3 (0.1-0.6); Monocytes Percent Auto 8.2 % (2.6-8.5); Neutrophils Absolute Auto 2.8 K/mm3 (1.3-6.7); Neutrophils Percent Auto 43.2 % (45.5-73.1); Platelet Count Result 186 k/mm3 (150-375); Red Blood Count 3.38 M/mm3 (4.2-5.4); Red Cell Distribution Width 15.5 % (11.5-14.5); White Blood Count 6.6 K/mm3 (4.5-10.0)
[2022-05-02 05:52] LABS: Alanine Aminotransferase 11 U/L (6-35); Albumin Level 3.1 g/dL (3.5-5.1); Alkaline Phosphatase 66 U/L (38-126); Anion Gap 5 mmol/L (8-16); Aspartate Amino Transferase 28 U/L (14-36); Bilirubin,Total 0.8 mg/dL (0.2-1.3); Blood Urea Nitrogen 15 mg/dL (7-17); Calcium 8.8 mg/dL (8.4-10.2); Carbon Dioxide 25 mmol/L (22-30); Chloride 108 mmol/L (98-107); Estimated CRCL calculation 35 ml/min; Estimated Glomerular Filt Rate 53; Glucose 81 mg/dL (65-110); Magnesium 2.2 mg/dL (1.6-2.3); Potassium 3.3 mmol/L (3.4-5.0); Sodium 138 mmol/L (137-145)
[2022-05-02 06:06] LABS: Iron 49 ug/dL (37-170)
[2022-05-02 06:16] LABS: Percent Iron Saturation 28 % (20-50)
[2022-05-02 06:17] LABS: Transferrin 108 mg/dL (206-381)
[2022-05-02 07:03] LABS: Folic Acid > 20.0 ng/mL (2.76->20)
[2022-05-02] MEDS: OPTI-GEN TAB 1 TABLET PO ×2 (08:40→17:16)
[2022-05-02] MEDS: SERTRALINE HCL 50 MG TABLET PO (08:41)
[2022-05-02] MEDS: POTASSIUM CHLORIDE 10 MEQ TABLET.ER PO (08:41)
[2022-05-02] MEDS: ASPIRIN 81 MG CHEWABLE TABLET PO (08:41)
[2022-05-02] MEDS: FERROUS SULFATE 324 MG TABLET PO ×2 (08:41→17:15)
[2022-05-02] MEDS: DOCUSATE SODIUM 100 MG CAPSULE PO ×2 (08:41→17:15)
[2022-05-02] MEDS: CHOLECALCIFEROL 1,000 UNITS TABLET 1000 UNITS PO (08:41)
[2022-05-02] MEDS: DONEPEZIL HCL 10 MG TABLET PO (08:42)
[2022-05-02] MEDS: FAMOTIDINE 20 MG TABLET PO (08:42)
[2022-05-02] MEDS: ENOXAPARIN 40 MG/0.4 ML SYRINGE SUB-Q (08:42)
--- NOTE | 2022-05-02 08:45 | PM.DS ---
DS: Admitting Diagnosis Discharge Date 05/03/22 0845 Admitting Diagnosis UTI DS: Discharge Diagnosis Discharge Diagnosis (1) Urinary tract infection: Code(s): N39.0 - Urinary tract infection, site not specified Status: Acute Assessment and Plan: UA appears turbid, 3+ leukocyte esterase, WBC >75, and trace bacteria Vancomycin started, changed to linezolid for DC Urine culture grew enterococcus adjust therapy with culture results (2) Dementia: Code(s): F03.90 - Unspecified dementia without behavioral disturbance Status: Acute Assessment and Plan: seems to be doing better, knew place, person, and almost got the month right May be related to urinary tract infection. Initiate fall precautions. Continue donepezil. (3) Atrial fibrillation: Code(s): I48.91 - Unspecified atrial fibrillation Status: Acute Assessment and Plan: Not on anticoagulation, likely due to fall risk. still awaiting EKG Looks controlled at this time Tele monitor Does have an elevated heart rate today Give 250 ml of fluids (4) Anxiety: Code(s): F41.9 - Anxiety disorder, unspecified Status: Acute Assessment and Plan: Continue sertraline and lorazepam. (5) Anemia: Code(s): D64.9 - Anemia, unspecified Status: Acute Assessment and Plan: H/H 11.5/36.2 Seems stable at this time Anemia labs Iron 49, TIBC 176,% saturation 28, transferrin 108, B12 876, folate the greater than 20, ferritin 127 Continue home ferrous sulfate Adjust supplementation as indicated DS: Summary Hospital Course Hospital Course: Patient is an 86-year-old female with a past medical history of anemia, anxiety, atrial fibrillation who presented the ED for a complicated U[facility] that was [facility] in the [facility]. Patient had been on [facility]efdinir at the [facility] which was not working and failed outpatient treatment. Urine culture was obtained and showed the patient Enterococcus which is only susceptible to IV vancomycin which can be converted to linezolid p.o.. Patient has been given 1 dose of IV vancomycin and shows no signs or symptoms of urinary frequency, urgency, retention. Patient denies any urinary discomfort or dysuria. patient is also been more active and is eating. labs are stable. Patient will be returning back to her [facility] for further care. Patient denies any chest pain, shortness of breath, nausea, vomiting, diarrhea, constipation, weakness or fatigue. Patient wbc's has been normal throughout the entire visit. Vital signs are very stable. Patient did state that she was and will never be 100% back to herself due to the loss of her . Status at Discharge Functional status at discharge: bed bound Overall status at discharge: patient is progressing back to baseline Time Spent with Patient Time attestation: Total time spent providing and/or coordinating discharge services: 36 minutes Time spent: Greater than 30 minutes Specific discharge activities: Diagnostic testing, chart review, developing a treatment plan, education, care coordination documentation, physical exam, result review Exam Const: General: cooperative, healthy appearing, no acute distress, well developed, alert, awake, confusion (confused on time ), ill appearing chronically and tired appearing Nutritional Appearance: well nourished Orientation/consciousness: oriented to person, oriented to place, patient oriented x3 and confusion (confused on time ) Limitations: no limitations HENMT: Head: normal to inspection Ears: hearing grossly normal bilaterally General nose exam: Normal external nose present Mouth: Yes Normal oral and palatal mucosa present, Yes lip normal and Yes tongue normal Teeth and gingiva: abnormal tooth and associated gingiva and poor dentition Eyes: General: appearance normal, both eyes and all related structures Visual
--- NOTE | 2022-05-02 08:45 | P.DS_ITS ---
DS: Admitting Diagnosis Discharge Date 05/03/22 0845 Admitting Diagnosis UTI DS: Discharge Diagnosis Discharge Diagnosis (1) Urinary tract infection: Code(s): N39.0 - Urinary tract infection, site not specified Status: Acute Assessment and Plan: * UA appears turbid, 3+ leukocyte esterase, WBC >75, and trace bacteria * Vancomycin started, changed to linezolid for DC * Urine culture grew enterococcus * adjust therapy with culture results (2) Dementia: Code(s): F03.90 - Unspecified dementia without behavioral disturbance Status: Acute Assessment and Plan: * seems to be doing better, knew place, person, and almost got the month right * May be related to urinary tract infection. * Initiate fall precautions. * Continue donepezil. (3) Atrial fibrillation: Code(s): I48.91 - Unspecified atrial fibrillation Status: Acute Assessment and Plan: * Not on anticoagulation, likely due to fall risk. * still awaiting EKG * Looks controlled at this time * Tele monitor * Does have an elevated heart rate today * Give 250 ml of fluids (4) Anxiety: Code(s): F41.9 - Anxiety disorder, unspecified Status: Acute Assessment and Plan: * Continue sertraline and lorazepam. (5) Anemia: Code(s): D64.9 - Anemia, unspecified Status: Acute Assessment and Plan: * H/H 11.5/36.2 * Seems stable at this time * Anemia labs Iron 49, TIBC 176,% saturation 28, transferrin 108, B12 876, folate the greater than 20, ferritin 127 * Continue home ferrous sulfate * Adjust supplementation as indicated DS: Summary Hospital Course Hospital Course: Patient is an 86-year-old female with a past medical history of anemia, anxiety, atrial fibrillation who presented the ED for a complicated UTI that was found in the group home. Patient had been on cefdinir at the group home which was not working and failed outpatient treatment. Urine culture was obtained and showed the patient Enterococcus which is only susceptible to IV vancomycin which can be converted to linezolid p.o.. Patient has been given 1 dose of IV vancomycin and shows no signs or symptoms of urinary frequency, urgency, retention. Patient denies any urinary discomfort or dysuria. patient is also been more active and is eating. labs are stable. Patient will be returning back to her group home for further care. Patient denies any chest pain, shortness of breath, nausea, vomiting, diarrhea, constipation, weakness or fatigue. Patient wbc's has been normal throughout the entire visit. Vital signs are very stable. Patient did state that she was and will never be 100% back to herself due to the loss of her . Status at Discharge Functional status at discharge: bed bound Overall status at discharge: patient is progressing back to baseline Time Spent with Patient Time attestation: Total time spent providing and/or coordinating discharge services: 36 minutes Time spent: Greater than 30 minutes Specific discharge activities: Diagnostic testing, chart review, developing a treatment plan, education, care coordination documentation, physical exam, result review Exam Const: General: cooperative, healthy appearing, no acute distress, well developed, alert, awake, confusion (confused on time ), ill appearing chronically and tired appearing Nutritional Appearance: well nourished Orientation/consciousness: oriented to person
[2022-05-02] MEDS: LORazepam (*CRX) 0.5 MG TABLET PO ×2 (08:46→17:16)
--- NOTE | 2022-05-02 09:31 | PM.IMPN ---
Progress Note: A&P Assessment and Plan (1) Urinary tract infection: Code(s): N39.0 - Urinary tract infection, site not specified Status: Acute Assessment and Plan: UA appears turbid, 3+ leukocyte esterase, WBC >75, and trace bacteria Vancomycin started only susceptible to vancomycin Urine culture grew enterococcus adjust therapy with culture results (2) Dementia: Code(s): F03.90 - Unspecified dementia without behavioral disturbance Status: Acute Assessment and Plan: seems to be doing better, knew place, person, and almost got the month right May be related to urinary tract infection. Initiate fall precautions. Continue donepezil. (3) Atrial fibrillation: Code(s): I48.91 - Unspecified atrial fibrillation Status: Acute Assessment and Plan: Not on anticoagulation, likely due to fall risk. still awaiting EKG Looks controlled at this time Tele monitor Does have an elevated heart rate today Give 250 ml of fluids (4) Anxiety: Code(s): F41.9 - Anxiety disorder, unspecified Status: Acute Assessment and Plan: Continue sertraline and lorazepam. (5) Anemia: Code(s): D64.9 - Anemia, unspecified Status: Acute Assessment and Plan: H/H 10.9/34.0 Seems stable at this time Anemia labs in the am Continue home ferrous sulfate Adjust supplementation as indicated Time Spent With Patient Time with patient: Greater than 35 minutes Subjective Date/time seen: 05/02/22 09:31 Interval history: 05/02/2231 Patient seems to be doing okay today. She was alert. Her heart rate was elevated 130s however they said they just stood her up. Currently heart rate back down in the 100s. Patient denies taking in good p.o. and has decreased appetite. She also stated that she has been very depressed since her has . She denies any chest pain, shortness of breath, nausea, vomiting, diarrhea, constipation, weakness. She states that she does not really have too many complaints. If she tolerates the ampicillin then she could probably be DC tomorrow. Not sure what her mobility level is but she is probably at baseline. 05/01/22 11:15 Patient was sleeping when I went to examine her. She seemed to be in good spirits and knew where she was and was close to the month. She denies any chest pain, shortness of breath, nausea, vomiting, diarrhea, constipation. She also denied any kind of frequency urgency with urinary symptoms. She was very pleasant. 04/30/22? 18:30 This is an 86-year-old female with dementia, atrial fibrillation, and anxiety presented to the emergency department via EMS from [facility] for evaluation of weakness. She has a poor historian and as such almost all the following is obtained via a review of her electronic medical records. According to [facility] staff, she is on day 4 of cefdinir for urinary tract infection but she is not getting better. In fact she has been more weak, confused, and lethargic the last 24 hours. Today she was more combative than usual and she was sent to the ER for evaluation. Blood pressures were a bit elevated however the rest of her vital signs are unremarkable. Labs were also fairly unremarkable. Urine still looks infected with 3+ leukocyte esterase, greater than 75 WBCs, and trace bacteria. She is being admitted in this setting for possible failure of outpatient treatment. At the time my evaluation she is angry at the ER nurse and believes that the nurses trying to poison her with the IV. She tells me she is feeling much better and that she wants to be left alone. She denies abdominal pain, dysuria, and fever. She answered no other questions. Review of Systems Review of Systems: All systems reviewed & are unremarkable except as noted in HPI and below Exam Const: General: cooperative, healthy appearing, no acute di
--- NOTE | 2022-05-02 09:31 | P.PNIM_ITS ---
Progress Note: A&P Assessment and Plan (1) Urinary tract infection: Code(s): N39.0 - Urinary tract infection, site not specified Status: Acute Assessment and Plan: * UA appears turbid, 3+ leukocyte esterase, WBC >75, and trace bacteria * Vancomycin started * only susceptible to vancomycin * Urine culture grew enterococcus * adjust therapy with culture results (2) Dementia: Code(s): F03.90 - Unspecified dementia without behavioral disturbance Status: Acute Assessment and Plan: * seems to be doing better, knew place, person, and almost got the month right * May be related to urinary tract infection. * Initiate fall precautions. * Continue donepezil. (3) Atrial fibrillation: Code(s): I48.91 - Unspecified atrial fibrillation Status: Acute Assessment and Plan: * Not on anticoagulation, likely due to fall risk. * still awaiting EKG * Looks controlled at this time * Tele monitor * Does have an elevated heart rate today * Give 250 ml of fluids (4) Anxiety: Code(s): F41.9 - Anxiety disorder, unspecified Status: Acute Assessment and Plan: * Continue sertraline and lorazepam. (5) Anemia: Code(s): D64.9 - Anemia, unspecified Status: Acute Assessment and Plan: * H/H 10.9/34.0 * Seems stable at this time * Anemia labs in the am * Continue home ferrous sulfate * Adjust supplementation as indicated Time Spent With Patient Time with patient: Greater than 35 minutes Subjective Date/time seen: 05/02/22 09:31 Interval history: 05/02/22930 Patient seems to be doing okay today. She was alert. Her heart rate was elevated 130s however they said they just stood her up. Currently heart rate back down in the 100s. Patient denies taking in good p.o. and has decreased appetite. She also stated that she has been very depressed since her has . She denies any chest pain, shortness of breath, nausea, vomiting, diarrhea, constipation, weakness. She states that she does not really have too many complaints. If she tolerates the ampicillin then she could probably be DC tomorrow. Not sure what her mobility level is but she is probably at baseline. 05/01/22 11:15 Patient was sleeping when I went to examine her. She seemed to be in good sp irits and knew where she was and was close to the month. She denies any chest pain, shortness of breath, nausea, vomiting, diarrhea, constipation. She also denied any kind of frequency urgency with urinary symptoms. She was very pleasant. 04/30/22? 18:30 This is an 86-year-old female with dementia, atrial fibrillation, and anxiety presented to the emergency department via EMS from [facility] for evaluation of weakness. She has a poor historian and as such almost all the following is obtained via a review of her electronic medical records. According to [facility] staff, she is on day 4 of cefdinir for urinary tract infection but she is not getting better. In fact she has been more weak, confused, and lethargic the last 24 hours. Today she was more combative than usual and she was sent to the ER for evaluation. Blood pressures were a bit elevated however the rest of her vital signs are unremarkable. Labs were also fairly unremarkable. Urine still looks infected with 3+ leukocyte esterase, greater than 75 WBCs, and trace bacteria. She is being admitted in this setting for possible failure of outpatient treatment. At
[2022-05-02] MEDS: AMPICILLIN TRIHYDRATE 500 MG CAPSULE PO (10:58)
[2022-05-02] MEDS: POTASSIUM CHLORIDE 20 MEQ TABLET 40 MEQ PO (10:59)
[2022-05-02] MEDS: SODIUM CHLORIDE 0.9% IV 250 ML 100 ML IV CONT (11:00)
[2022-05-02] MEDS: traMADol HCL (*CRX) 50 MG TABLET PO (11:39)
--- NOTE | 2022-05-02 13:43 | PCNSR ---
On 05/02/22, the student, Lloyd Blackburn, provided care and completed [facility] documentation on this patient. I have reviewed the student's documentation and agree with the findings.
[2022-05-02] MEDS: PRAVASTATIN SODIUM 20 MG TABLET PO (17:15)
[2022-05-02] MEDS: TAMSULOSIN HCL 0.4 MG CAPSULE PO (17:15)
[2022-05-02] MEDS: ACETAMINOPHEN 500 MG TABLET PO (20:36)
[2022-05-03] VITALS: PULSE 60
[2022-05-03 04:00] VITALS: PULSE 53
[2022-05-03 05:42] LABS: Basophils Percent Auto 0.4 % (0.2-1.2); Eosinophils Absolute Auto 0.2 K/mm3 (0-0.3); Eosinophils Percent Auto 2.3 % (0-4.4); Hematocrit 36.2 % (37.0-47.0); Hemoglobin 11.5 g/dL (12.0-15.0); Immature Granulocyte Absolute 0.02 K/mm3 (0.00-0.031); Immature Granulocyte Percent A 0.2 % (0-0.5); Lymphocytes Absolute Auto 2.97 K/mm3 (0.9-3.2); Lymphocytes Percent Auto 36.6 % (18.3-44.2); Mean Corpuscular HGB Conc 31.8 g/dl (32-36); Mean Corpuscular Hemoglobin 31.8 pg (26-34); Mean Platelet Volume 10.2 fl (7.4-10.4); Monocytes Absolute Auto 0.7 K/mm3 (0.1-0.6); Monocytes Percent Auto 8.8 % (2.6-8.5); Neutrophils Absolute Auto 4.2 K/mm3 (1.3-6.7); Neutrophils Percent Auto 51.7 % (45.5-73.1); Platelet Count Result 195 k/mm3 (150-375); Red Blood Count 3.62 M/mm3 (4.2-5.4); Red Cell Distribution Width 15.1 % (11.5-14.5); White Blood Count 8.1 K/mm3 (4.5-10.0)
[2022-05-03 05:53] LABS: Alanine Aminotransferase 12 U/L (6-35); Albumin Level 3.1 g/dL (3.5-5.1); Alkaline Phosphatase 70 U/L (38-126); Anion Gap 3 mmol/L (8-16); Aspartate Amino Transferase 24 U/L (14-36); Bilirubin,Total 0.7 mg/dL (0.2-1.3); Blood Urea Nitrogen 13 mg/dL (7-17); Calcium 8.9 mg/dL (8.4-10.2); Carbon Dioxide 29 mmol/L (22-30); Chloride 108 mmol/L (98-107); Estimated CRCL calculation 35 ml/min; Estimated Glomerular Filt Rate 53; Glucose 105 mg/dL (65-110); Magnesium 2.2 mg/dL (1.6-2.3); Potassium 3.4 mmol/L (3.4-5.0); Sodium 140 mmol/L (137-145)
[2022-05-03 06:00] VITALS: BP 131/65; PULSE 82; RESP 18; TEMP 36.3; O2SAT 92
[2022-05-03 08:00] VITALS: PULSE 108
[2022-05-03] MEDS: DONEPEZIL HCL 10 MG TABLET PO (08:09)
[2022-05-03] MEDS: POTASSIUM CHLORIDE 10 MEQ TABLET.ER PO (08:09)
[2022-05-03] MEDS: FAMOTIDINE 20 MG TABLET PO (08:09)
[2022-05-03] MEDS: ASPIRIN 81 MG CHEWABLE TABLET PO (08:09)
[2022-05-03] MEDS: FERROUS SULFATE 324 MG TABLET PO (08:09)
[2022-05-03] MEDS: OPTI-GEN TAB 1 TABLET PO (08:09)
[2022-05-03] MEDS: DOCUSATE SODIUM 100 MG CAPSULE PO (08:10)
[2022-05-03] MEDS: ENOXAPARIN 40 MG/0.4 ML SYRINGE SUB-Q (08:10)
[2022-05-03] MEDS: SERTRALINE HCL 50 MG TABLET PO (08:10)
[2022-05-03] MEDS: CHOLECALCIFEROL 1,000 UNITS TABLET 1000 UNITS PO (08:10)
[2022-05-03] MEDS: LORazepam (*CRX) 0.5 MG TABLET PO (08:11)
[2022-05-03 12:54] LABS: EDCOVIDSCREEN Negative (Negative)
== END 2022-05-03 15:00 | DRG 690 ==
LOC: ANHED 18:47 → ANH3MED 19:20
PROVIDERS: Physician Assistant; Admitting Provider Hospitalist; Emergency Provider Emergency Medicine; PCP Family Medicine; Visit Provider Nurse Practitioner
DX: N39.0 Urinary tract infection, site not specified (principal); F03.90 Unspecified dementia, unspecified severity, without behavioral disturbance, psychotic disturbance, mood disturbance, and anxiety; B95.2 Enterococcus as the cause of diseases classified elsewhere; Z20.822 Contact with and (suspected) exposure to COVID-19; I48.91 Unspecified atrial fibrillation; F41.9 Anxiety disorder, unspecified; D64.9 Anemia, unspecified; K21.9 Gastro-esophageal reflux disease without esophagitis; H35.30 Unspecified macular degeneration; E55.9 Vitamin D deficiency, unspecified; E53.8 Deficiency of other specified B group vitamins; Z66 Do not resuscitate; Z79.82 Long term (current) use of aspirin; Z79.899 Other long term (current) drug therapy; Z91.81 History of falling
CPT/HCPCS: 36415; 51701; 70450; 80048; 80053; 81001; 82607; 82728; 82746; 83540; 83550; 83605; 83735; 84466; 85025; 85027; 87040; 87086; 87147; 87181; 87186; 87426; 93005; 96365; 97165; 99285; A9270; C9803; G0378; J0696; J1650; J3370; J7050

== ENCOUNTER 2022-06-29 16:14 | Emergency (ER) | payer OTHER, MEDICARE, BC, MEDICAID, SELFPAY ==
--- NOTE | ~2022-06-29 | XR_ITS ---
EXAMINATION: XR shoulder RT min 2V DATE: 06/29/2022 17:19 INDICATION: Right shoulder pain post fall TECHNIQUE: AP internally and externally rotated, AP oblique externally rotated and transscapular Y vi ews of the affected shoulder were obtained. COMPARISON: None FINDINGS: Normal alignment. No fracture.Mild glenohumeral osteoarthritis. Postoperative change of prior acromi oplasty and distal right clavicle resection. Right lung is clear with no pleural effusion or pneumoth orax.. Soft tissues are unremarkable. IMPRESSION: Mild right glenohumeral osteoarthritis and change of prior acromioplasty and distal right clavicle re section. No acute osseous abnormality.. Reviewed, dictated and finalized at location A. IMPRESSION: Mild right glenohumeral osteoarthritis and change of prior acromioplasty and di stal right clavicle resection. No acute osseous abnormality..
--- NOTE | ~2022-06-29 | XR_ITS ---
EXAM: XR hip RT 2V w AP pelvis DATE: 06/29/2022 17:18 HISTORY: fall, FALL TODAY, [employer]IST[employer] . COMPARISON: 03/23/2014. FINDINGS: Decreased mineralization. No fracture or dislocation. No lytic or blastic lesion. Abdomina l suture wire, a lytic vascular clips, nondisplaced left hip arthroplasty, posterior fusion hardware. Degenerative changes in the lumbar spine, right hip, and pubic symphysis. No erosion or periosteal c hange. Soft tissues within normal limits. IMPRESSION: No acute osseous finding in the right hip or pelvis. Reviewed, dictated and finalized at location K.
--- NOTE | ~2022-06-29 | CT_ITS ---
EXAMINATION: CT lumbar spine wo con DATE: 06/29/2022 17:29 INDICATION: Hip pain post fall TECHNIQUE: Computed tomography (CT) of the lumbar spine was performed without intravenous contrast. A utomated exposure control and iterative reconstruction technique were employed. The dose-length produ ct was 1073.73 mGy-cm. COMPARISON: None FINDINGS: 12 degree lumbar levoscoliosis. 3 mm retrolisthesis L3 on L4. L4-L5 instrumented posterior spinal fusion with bilateral vertical chuck and pedicle screw fixation. Associated right-sided facetect omies at L4-L5. There has also been prior anterior spinal fusion with interbody bone graft cage. Bone graft harvest site at the right posterior iliac spine. Vertebral body heights are normal. Moderate d isc height loss at L3-L4. Mild disc height loss at L2-L3. Postoperative changes in the left upper abilio drant including likely gastric banding procedure. The following disc levels are specifically discusse d: T12-L1: Very small central disc protrusion. There is mild bilateral facet joint osteoarthritis. There is no neural foraminal stenosis. There is no central canal stenosis. L1-L2: Disc is bulging. There is mild right and mild to moderate left facet joint osteoarthritis. The re is mild right and mild to moderate left neural foraminal stenosis. There is mild central canal jimi nosis. L2-L3: Disc is bulging. There is moderate bilateral facet joint osteoarthritis. There is mild right a nd mild to moderate left neural foraminal stenosis. There is moderate central canal stenosis. L3-L4: Disc is bulging. There is hypertrophy of the ligamentum flavum. There is mild bilateral facet joint osteoarthritis. There is moderate bilateral neural foraminal stenosis. There is moderate to sev ere central canal stenosis. L4-L5: Anterior and posterior spinal fusion procedures along with right-sided facetectomy. Bilateral small hypertrophic endplate osteophytes, right greater than left. There is mild to moderate left neur al foraminal stenosis. There is likely mild to moderate central canal stenosis however assessment of the soft tissues is significant limited by metallic streak artifact from the vertical rods and pedicl e screws. L5-S1: Disc is bulging. There is mild to moderate bilateral facet joint osteoarthritis. There is mild right and mild to moderate left neural foraminal stenosis. There is no central canal stenosis. IMPRESSION: 1. Moderate lumbar spondylosis with combined instrumented anterior and posterior spinal fusion at L4- L5. No acute osseous abnormality. Reviewed, dictated and finalized at location A. IMPRESSION: 1. Moderate lumbar spondylosis with combined instrumented anterior and posterio r spinal fusion at L4-L5. No acute osseous abnormality.
--- NOTE | ~2022-06-29 | XR_ITS ---
EXAMINATION: XR chest 1V portable Exam Date/Time: 06/29/2022 17:10 CDT HISTORY: ams, FALL TODAY, [employer] HIST[employer]IAN Comparison: 02/28/2022. RESULT: Lines, tubes, and devices: Postsurgical changes over the stomach. Lungs and pleura: Clear. Cardiomediastinal silhouette: Stable. Other: No acute osseous or upper abdominal finding. IMPRESSION: No acute cardiopulmonary process. Reviewed, dictated and finalized at location K.
--- NOTE | ~2022-06-29 | CT_ITS ---
EXAMINATION: CT brain wo con DATE: 06/29/2022 17:29 INDICATION: fall . TECHNIQUE: Computed tomography (CT) of the head was performed without intravenous contrast. The mA wa s adjusted according to patient size. Iterative reconstruction technique was employed. The dose-lengt h product was 605.33 mGy-cm. COMPARISON: None FINDINGS: No acute intracranial hemorrhage or extra-axial fluid collection. No hydrocephalus, mass, or herniation. No acute ischemic infarct. Unremarkable dural venous sinus attenuation. No acute osseous abnormality. The aerated spaces are clear. Moderate atrophy and chronic white matter change. Atherosclerotic intracranial calcification. Bilater al lens replacements. IMPRESSION: No acute intracranial process. Reviewed, dictated and finalized at location K.
--- NOTE | ~2022-06-29 | CT_ITS ---
EXAMINATION: CT cervical spine wo con DATE: 06/29/2022 17:29 INDICATION: fall TECHNIQUE: Computed tomography (CT) of the cervical spine was performed without intravenous contrast. Automated exposure control and iterative reconstruction technique were employed. The dose-length pro duct was 285.73 mGy-cm. COMPARISON: None FINDINGS: Vertebral Body Alignment: Intact. Reversed lordosis. 2 mm anterolisthesis of C3 on C4. 2 mm retrolist hesis of C4 on C5. Craniocervical and atlantoaxial alignment: Moderate degenerative change. Alignment intact. Osseous structures/fracture: No evidence of a lytic or blastic process in the visualized spine. No e vidence of acute fracture. Cervical soft tissues: The paraspinal soft tissues planes are maintained. Degenerative changes: Multilevel severe degenerative disc disease. No severe neural foraminal narrowi ng. Moderate-severe central canal narrowing at C4-5. IMPRESSION: No acute fracture or traumatic malalignment in the cervical spine. Reviewed, dictated and finalized at location K.
--- NOTE | ~2022-06-29 | CT_ITS ---
EXAMINATION: CT brain wo con DATE: 06/29/2022 21:02 INDICATION: minor head injury . TECHNIQUE: Computed tomography (CT) of the head was performed without intravenous contrast. The mA wa s adjusted according to patient size. Iterative reconstruction technique was employed. The dose-lengt h product was 605.33 mGy-cm. COMPARISON: 06/29/2022. FINDINGS: No acute intracranial hemorrhage or extra-axial fluid collection. No hydrocephalus, mass, or herniation. No acute ischemic infarct. Unremarkable dural venous sinus attenuation. No acute osseous abnormality. The aerated spaces are clear. Moderate atrophy and chronic white matter change. Atherosclerotic intracranial calcification. Bilater al lens replacements. IMPRESSION: No acute intracranial process. Reviewed, dictated and finalized at location K.
[2022-06-29 16:16] VITALS: BP 125/70; PULSE 78; RESP 15; TEMP 36.9; O2SAT 97
[2022-06-29 16:30] VITALS: BP 135/66; PULSE 61; O2SAT 98
[2022-06-29 16:45] VITALS: BP 125/67; PULSE 72
--- NOTE | 2022-06-29 18:26 | ED.FALL ---
HPI - Fall General Chief Complaint: Fall Stated Complaint: fall Time Seen by Provider: 06/29/22 16:30 Source: RN notes reviewed History of Present Illness HPI Narrative: Patient presents emergency department from [facility] via EMS for a fall patient states that she fell out of her wheelchair unwitnessed at her facility. Patient is complaining of some mild right hip and shoulder pain as well as neck pain and chronic lower back pain. She denies any loss of consciousness patient states she does not walk at baseline. She denies any chest pain shortness of breath abdominal pain nausea vomiting or any other symptoms Related Data Home Medications Medication Instructions Recorded Confirmed Artificial Tears 1 drp EACH EYE Q6H PRN Dry Eyes 04/30/22 04/30/22 aluminum-mag hydroxide-simethicone 20 ml PO Q4H PRN Heartburn 04/30/22 04/30/22 400 mg-400 mg-40 mg/5 mL oral susp (Maalox Maximum Strength) aspirin 81 mg chewable tablet 81 mg PO DAILY 04/30/22 04/30/22 cefdinir 300 mg capsule 1 cap PO BID 04/30/22 04/30/22 cholecalciferol (vitamin D3) 25 25 mcg PO DAILY 04/30/22 04/30/22 mcg (1,000 unit) tablet docusate sodium 100 mg PO BID 04/30/22 04/30/22 donepezil 10 mg tablet 10 mg PO DAILY 04/30/22 04/30/22 famotidine 20 mg tablet 20 mg PO DAILY 04/30/22 04/30/22 ferrous sulfate 325 mg (65 mg 325 mg PO BID 04/30/22 04/30/22 iron) tablet loperamide 2 mg capsule 2 mg PO Q6H PRN Diarrhea 04/30/22 04/30/22 ondansetron 8 mg disintegrating 8 mg translingual Q8H Nausea 04/30/22 04/30/22 tablet polyethylene glycol 17 ea DAILY PRN Constipation 04/30/22 04/30/22 potassium chloride 10 mEq 10 meq PO DAILY 04/30/22 04/30/22 capsule,extended release pravastatin 20 mg tablet 20 mg PO DAILY 04/30/22 04/30/22 sertraline 50 mg tablet 1 tablet PO DAILY 04/30/22 04/30/22 sumatriptan succinate 25 mg tablet 25 mg PO ONCE PRN Headache 04/30/22 04/30/22 tamsulosin 0.4 mg capsule 0.4 mg PO DAILY 04/30/22 04/30/22 vit C 250 mg-vit E 90 mg-zinc 40 1 tablet PO BID 04/30/22 04/30/22 mg-copper 1 [id number] capsule (PreserVision AREDS-2) Allergies Allergy/AdvReac Type Severity Reaction Status Date / Time hydrocodone Allergy Unknown Unknown Verified 06/29/22 16:34 acetaminophen Allergy Unknown Verified 06/29/22 16:34 [From Darvocet-N] bacitracin Allergy Unknown Verified 06/29/22 16:34 [From Neosporin ([id number])] clonazepam [From Klonopin] Allergy Unknown Verified 06/29/22 16:34 codeine Allergy Unknown Verified 06/29/22 16:34 morphine Allergy Unknown Verified 06/29/22 16:34 neomycin Allergy Unknown Verified 06/29/22 16:34 [From Neosporin ([id number])] polymyxin B Allergy Unknown Verified 06/29/22 16:34 [From Neosporin ([id number])] propoxyphene [From Darvon] Allergy Unknown Verified 06/29/22 16:34 raloxifene [From Evista] Allergy Unknown Verified 06/29/22 16:34 Review of Systems Review of Systems: Gen.: Denies fevers or chills Eyes: Denies eye pain or visual change ENT: Denies congestion Respiratory: Denies shortness of breath CV: Denies chest pain GI: Denies abdominal pain nausea, emesis Musculoskeletal: See HPI Neuro: Denies numbness, tingling, weakness or focal weakness Skin: Denies rash Except as documented, all other systems reviewed and negative [facility] Past Medical History Medical History Anemia Anxiety Anxiety Atrial fibrillation Atrial fibrillation B12 deficiency Chronic pain Dementia Depression Dyslipidemia Gastroesophageal reflux disease Macular degeneration Macular degeneration Vitamin D deficiency Surgical History Surgical History (Updated 05/02/22 @ 08:50 by Darshana Toscano) History of cholecystectomy History of hysterectomy History of total right knee replacement Surgical history unknown Family History Family History (System 05/02/22 @ 08:50 by Darshana Toscano) Mother Brain aneurysm Sibling
[2022-06-29 18:37] VITALS: BP 135/64; PULSE 84; O2SAT 97
--- NOTE | 2022-06-29 18:57 | PC.NURSE ---
1855 Contacted [facility], spoke with ED. Updated on pt status and d/c back to the half-way. snf updated and report was called to VALENTIN Trevizo.
--- NOTE | 2022-06-29 19:04 | PC.NURSE ---
[facility] called for an updated on pt. Spoke with Lisbeth, hospice clinical supervisor and informed her that pt will be returning to the longterm via [facility].
--- NOTE | 2022-06-29 22:19 | PC.NURSE ---
called [facility] for ETA update. ETA 0100 called [facility] to request transport. ETA 45 minutes. cancelled [facility].
--- NOTE | 2022-06-29 23:02 | PC.NURSE ---
[facility] here.
[2022-06-29 23:03] VITALS: BP 142/101; PULSE 85; RESP 20; O2SAT 100
== END 2022-06-29 23:19 ==
PROVIDERS: Emergency Provider Emergency Medicine; PCP Family Medicine
DX: S16.1XXA Strain of muscle, fascia and tendon at neck level, initial encounter (principal); S40.011A Contusion of right shoulder, initial encounter; S70.01XA Contusion of right hip, initial encounter; M54.50 Low back pain, unspecified; D64.9 Anemia, unspecified; F41.9 Anxiety disorder, unspecified; I48.91 Unspecified atrial fibrillation; F03.90 Unspecified dementia, unspecified severity, without behavioral disturbance, psychotic disturbance, mood disturbance, and anxiety; F32.9 Major depressive disorder, single episode, unspecified; K21.9 Gastro-esophageal reflux disease without esophagitis; W05.0XXA Fall from non-moving wheelchair, initial encounter
CPT/HCPCS: 70450; 71045; 72125; 72131; 73030; 73502; 99284